=== PATIENT | male | born 2000 | race Caucasian/White ===

== ENCOUNTER 2018-06-16 15:09 | Outpatient (RCR) | payer SELFPAY ==
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
== END 2018-06-16 19:00 | disposition home or self-care (01) ==
LOC: PT 15:09
PROVIDERS: Referring Provider Orthopaedic Surgery; Visit Provider Orthopaedic Surgery
DX: S82.231K Displaced oblique fracture of shaft of right tibia, subsequent encounter for closed fracture with nonunion (principal); M86.2 Subacute osteomyelitis
CPT/HCPCS: 97161

== ENCOUNTER → 2020-12-14 14:18 | Outpatient (CLI) | payer OTHER, SELFPAY ==
--- NOTE | 2020-12-14 14:22 | RAD_ITS ---
INDICATION: HBO THERAPY TREATMENT EXAMINATION/TECHNIQUE: X-RAY - XR Chest 2 Views COMPARISON: None. FINDINGS: The lungs are clear. The cardiomediastinal silhouette is unremarkable. No pleural effusion or pneumothorax. No acute osseous abnormalities. RAD/Chest PA and Lateral IMPRESSION: No acute radiographic abnormalities. Electronically Signed: Yimi Muhammad MD at 23:44 EDT Tel , Service support ,
== END ==
PROVIDERS: PCP Family Medicine; Referring Provider Nurse Practitioner; Visit Provider Nurse Practitioner
DX: L97.919 Non-pressure chronic ulcer of unspecified part of right lower leg with unspecified severity (principal)
CPT/HCPCS: 71046

== ENCOUNTER 2020-12-28 08:15 | Outpatient (RCR) | payer OTHER, SELFPAY ==
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
[2020-12-13 11:57] VITALS: BP 139/74; PULSE 83; TEMP 36.1
[2020-12-14 14:52] LABS: Absolute Lymphocyte Count 2.71 X10^3/uL (0.83-4.51); Absolute Neutrophil Count 3.2 X10^3/uL (2.0-7.7); Basophil# 0.05 X10^3/uL; Basophil% 0.7 % (0-1); Eosinophil# 0.16 X10^3/uL; Eosinophils% 2.4 % (0-5); Hematocrit 47.5 % (40-54); Hemoglobin 15.8 g/dL (13.0-16.5); Lymphocyte # 2.71 X10^3/ul (0.83-4.51); Lymphocyte % 40.4 % (19-41); Mean Corp Hgb Conc 33.3 g/dL (32-36); Mean Corpuscular Hgb 28.2 pg (27.0-32.0); Mean Corpuscular Volume 84.8 fL (80-94); Mean Platelet Vol. 8.6 fl (6.2-12.0); Monocyte# 0.54 X10^3/uL; Monocyte% 8.1 % (0-10); NRBC Flagged by Analyzer 0 % (0-5); Neutrophil # 3.21 X10^3/uL (2.7-7.7); Platelet Count 239 K/mm3 (150-450); RBC Distribution Width CV 12.9 % (11.6-14.6); RBC Distribution Width SD 39.8 fl (35.1-43.9); White Blood Count 6.7 K/mm3 (4.4-11.0)
[2020-12-21 09:07] VITALS: BP 123/73; PULSE 89; RESP 18; TEMP 36.8
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
[2020-12-28 08:20] VITALS: BP 133/73; PULSE 78; RESP 18; TEMP 36.8
--- NOTE | 2020-12-28 12:48 | PCM.WC.PN ---
History of Present Illness Date of Service: 12/28/20 Chief Complaint: Chronic Osteomyelitis. Non healing Post surgical wound. History of Wound: Mr. Stoner is a 20-year-old who presents to the wound center for HBO consult due to non healing post surgical wound and chronic osteomyelitis. Initial injury was in 2017 and has had several surgeries since then. Most recent surgery was in September 2020. Following which, surgical wound has not completely closed. History of osteomyelitis initially diagnosed in 2019 and during most recent surgery, nonviable bone excised. Had been following up closely with his surgeon. No known history of heart or lung disease. No ear pain or discharge. Recently had Imaging and Blood work done which showed no concerns. Progress of Wound: The wound is an approximately in the right lower ankle area it has slough and scabbing patient has not been using any kind of treatment X prefer cover of gauze. Patient wears a boot for protection. We will obtain a CBC chest x-ray all records from previous orthopedic surgeons. Subjective Subjective Started on Santyl last week however discontinued after 1 day due to surrounding area of irritation and redness. Went back to [facility]. Objective Data Objective Data Vital Signs: Vital Signs Temp Pulse Resp BP 98.3 F 78 18 133/73 H 12/28/20 08:20 12/28/20 08:20 12/28/20 08:20 12/28/20 08:20 Lab / Micro Data Result Diagrams: 12/14/20 14:39 Micro: Microbiology 12/13/20 10:20 Wound Abcess - Ankle Gram Stain - Final 12/13/20 10:20 Wound Abcess - Ankle Wound Culture - Final Meth. resistant Staph. aureus Enterococcus faecalis Corynebacterium jeikeium 12/13/20 10:20 Wound Abcess - Ankle Anaerobic Culture - Final Anaerobic cocci Charges/Coding Procedures Integumentary 150xxx-152xx: 90083 Skin sub graft trnk/arm/leg Physical Exam Const alert, oriented x3 and no apparent distress General Appearance: cooperative, comfortable and well kempt HEENT normocephalic and head/scalp atraumatic Eyes General Eye: normal appearance of both eyes Neck full ROM General: normal visual inspection Resp normal respiratory effort Effort and Inspection: able to speak in complete sentences Cardio Rate: regular rate Rhythm: regular rhythm Heart Sounds: S1 normal and S2 normal GI Palpation: soft Skin Wounds: wounds noted Neuro oriented x3, CN's II-XII intact bilaterally and moves all extremities Sensorium / Orientation: awake and alert Psych mental status grossly normal Appearance: grossly normal Activity / Motor Behavior: appropriate eye contact Speech: normal speech Thought Process: normal thought process Debridement Note Debridement Note Post-Debridement Measurements and Additional Note: Post-Debridement Measurements/Treatment EVARISTO - Nurse 1 - General Ulcer Assessment Start: 12/13/20 09:20 Freq: Status: Active Protocol: FAIZAN Activity Type Activity Date Activity User E-Sign Co-Sign Detail Recorded Client Recorded Date Recorded By Document 12/13/20 11:57 KR [id number] 12/13/20 11:58 KR Document 12/21/20 09:07 DL [id number] 12/21/20 09:13 DL Document 12/28/20 08:20 DL [id number] 12/28/20 08:25 DL 12/13/20 12/21/20 12/28/20 11:57 09:07 08:20 EVARISTO - Today's Visit Information Type of service Initial Visit Follow-up Visit Follow-up Visit (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 [employer] (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 [employer] ) ) Arrival Mode Crutches Ambulatory, Ambulatory Crutches Transfer Assistance None Stretcher Patient Identification Verified (Name & Yes Yes Yes ) Patient Requires Transmission-Based No No Precautions Vital Signs Temperature (97.8 F-99.1 F) 97.0 F L 98.3 F 98.3 F Temperature Source Temporal Temporal Temporal Pulse Rate (60-100) 83 89 78 Pulse Location Monitor Monitor Monitor Respiratory Rate (12-18) 18 18 Respiratory rate source Observation Observation Blood Pressure (90/60-120/80) 139/74 H 123/73 H 133/73 H Blood Pressure Mean (mm Hg) 95 89 93 Source Monitor Monitor Monitor Position Semi-Fowlers Blood Pressure Location Right Arm History Since Last Visit- (Skip if this is Patient's initial visit) Have you changed medications since your No No No last visit? Any new allergies or adverse reactions No No No Had a fall/change in ADL's that may No No No increase risk of falls Signs or symptoms of abuse and/or No No No neglect since last visit Have you been in the hospital since your No No No last visit? Has dressing in place as prescribed No Yes No Has compression in place as prescribed N/A Yes No Has offloadiing in place as prescribed N/A Yes N/A Experienced any changes in pain level or No No management Left Footwear Regular Shoe Regular Shoe Right Footwear Regular Shoe Regular Shoe Pain Scale: 0-10 Numeric Is Patient Pain Free? Yes Yes Yes WC - Nurse 1 - General Ulcer Measurement Start: 12/13/20 09:20 Freq: Status: Active Protocol: Activity Type Activity Date Activity User E-Sign Co-Sign Detail Recorded Client Recorded Date Recorded By Document 12/13/20 11:57 KR [id number] 12/13/20 11:58 KR Document 12/21/20 09:07 DL [id number] 12/21/20 09:13 DL Document 12/28/20 08:20 DL [id number] 12/28/20 08:25 DL 12/13/20 12/21/20 12/28/20 11:57 09:07 08:20 Wound Center Nurse 1 #1 right medial ankle -Current Size (cm) - Length 3.4 3.1 3.5 -Current Size (cm) - Width 2.2 1.9 1.8 -Current Size (cm) - Depth 0.2 0.5 0.6 -Total Square Cm 7.48 5.89 6.30 -Photo Taken No -Undermining/Tunneling Yes -Undermining/Tunneling Starts (O'clock 11 ) -Undermining/Tunneling Ends (O'clock) 12 -Maximum Distance (cm) 0.4 -Exudate Amt Medium Medium -Exudate Type Serosanguineous Serosanguineous Purulent -Wound Margin Distinct, Distinct, Outline Outline Attached Attached -Granulation Amt Medium (34-66%) Small (1-33%) -Granulation Quality [place] -Necrosis Amt Medium (34-66%) Large (67-100%) -Necrotic Tissue Type Adherent Slough Adherent Slough -Structure Exposed N/A -Texture (Radha-wound Skin Appearance) Assessed, Localized Edema Scarring ,Scarring -Moisture (Radha-wound Skin Appearance) No Abnormality, No Abnormality Assessed -Color (Radha-wound Skin Appearance) No Abnormality, Rubor Assessed -Temperature (Radha-wound Skin No Abnormality No Abnormality Appearance) (Pt Warm) (Pt Warm) -Tenderness on Palpation (Radha-wound No No Skin Appearance) -Ulcer Cleansing Rinsed/ Rinsed/ Irrigated with Irrigated with Saline Saline -Foul Odor after Cleansing No No -Anesthetic Used 4% Lidocaine 4% Lidocaine Solution,5% Solution Lidocaine Gel Right Calf (cm) 38.6 37 Right Ankle (cm) 30 28.5 Left Calf (cm) 37.6 Left Ankle (cm) 25 WC - Nurse 2 - General Ulcer CM Notes Start: 12/13/20 09:20 Freq: Status: Active Protocol: Activity Type Activity Date Activity User E-Sign Co-Sign Detail Recorded Client Recorded Date Recorded By Document 12/13/20 10:12 MW [id number] 12/13/20 10:18 MW Document 12/21/20 09:28 MW [id number] 12/21/20 09:34 MW Document 12/28/20 08:34 MW [id number] 12/28/20 08:43 MW 12/13/20 12/21/20 12/28/20 10:12 09:28 08:34 Wound Center Nurse 2 #1 right medial ankle -Time 10:16 09:30 08:34 -Correct Patient Yes Yes Yes -Correct Side, Site, Position Yes Yes Yes -Correct Procedure Yes Yes Yes -Procedure Performed Yes Yes Yes -Type of Procedure Debridement Debridement Debridement -Clinical Debridement Subcutaneous Subcutaneous Subcutaneous -Tissue Removed Subcutaneous Subcutaneous Subcutaneous -Post Debridement (cm) - Length 3.5 3.6 3.5 -Post Debridement (cm) - Width 1.5 2.0 2.0 -Post Debridement (cm) - Depth 0.3 0.2 1.0 -Total Square (Post) (cm) 5.25 7.20 7.00 -Area of Debridement (cm) - Length 3.5 3.6 3.5 -Area of Debridement (cm) - Width 1.5 2.0 2.0 -Total Square (Area) (cm) 5.25 7.20 7.00 -Tunneling No No No -Undermining/Tunneling No No No -Circular Undermining No No No -Wound/Ulcer Outcome Not Healed Not Healed Not Healed -Ulcer Cleansing Rinsed/ Rinsed/ Rinsed/ Irrigated with Irrigated with Irrigated with Saline Saline Saline -Foul Odor after Cleansing No No No -Bioengineered Tissue No No Yes -Type of Bioengineered Tissue Epifix Mesh -Expiration Date 07/31/25 -Product Lot Number [id number] -Percent Used 100 -Lot number of Saline Used [id number] -Bleeding Controlled with Pressure Pressure Pressure -Offloading No No No -Treatment Response Procedure Procedure Procedure Tolerated Well Tolerated Well Tolerated Well -Debridement - Subq, 1st 20sq cm Yes Yes No -Apply Skin Sub - 1st 25 sq cm - Legs 1 -Epifix Mesh (per sq cm) 11 Pain Scale: 0-10 Numeric Is Patient Pain Free? Yes Yes Yes - Nurse 3 - General Ulcer D/C NN Start: 12/13/20 09:20 Freq: Status: Active Protocol: Activity Type Activity Date Activity User E-Sign Co-Sign Detail Recorded Client Recorded Date Recorded By Document 12/13/20 10:28 KR [id number] 12/13/20 10:28 KR Document 12/21/20 09:55 DL [id number] 12/21/20 09:57 DL Document 12/28/20 09:11 RB [id number] 12/28/20 09:11 RB 12/13/20 12/21/20 12/28/20 10:28 09:55 09:11 Wound Care Nurse 3 #1 right medial ankle -Ulcer Cleansing Rinsed/ Rinsed/ Irrigated with Irrigated with Saline Saline -Foul Odor after Cleansing No -Primary Dressing Applied Aquacel Extra NonAdherent Contact Layer -Other Dressing hydrogel -Primary Dressing Covered/Secured with Dry Gauze,Dry Dry Gauze & Dry Gauze,Dry Gauze & Roll Roll Gauze, Gauze & Roll Gauze,Secured Secured with Gauze,Secured with Tape Tape with Tape -Aquacel Extra 1 Treatment Response Procedure Procedure Tolerated Well Tolerated Well Pain Scale: 0-10 Numeric Is Patient Pain Free? Yes Yes - Visit Discharge Discharge Condition Stable Stable Stable Ambulatory Status Crutches Ambulatory Ambulatory, Crutches Transportation formerly [facility] Private Auto Private Auto Medication Reconcilliation completed & No provided to patient/care provider Clinical Summary of Care Provided Yes Notes: Pt to start Santyl. Px and instructions on application given to pt and family. Wound debrided: Right medial ankle Type of Debridement: Excisional debridement Anesthesia Used: 4% Lidocaine Solution Depth: Down to and including healthy tissue and in the subcutaneous layer Percentage of wound debrided: 100 Instrument Used: 5mm curette Tissue Removed: Slough and devitalized tissue Severity: Fat Layer Exposed Amount of bleeding with debridement: Mild Bleeding Controlled with: Pressure Patient tolerated procedure: Patient tolerated procedure well Assessment/Plan Assessment/Plan (1) Nonhealing surgical wound: CODE(S): T81.89XA - Other complications of procedures, not elsewhere classified, initial encounter QUALIFIERS: Encounter type: initial encounter Qualified Code(s): T81.89XA - Other complications of procedures, not elsewhere classified, initial encounter (2) Osteomyelitis of ankle: CODE(S): M86.9 - Osteomyelitis, unspecified QUALIFIERS: Osteomyelitis type: subacute Laterality: right Qualified Code(s): M86.271 - Subacute osteomyelitis, right ankle and foot (3) Edema of right lower leg: CODE(S): R60.0 - Localized edema PLAN: Debridement done as documented above, procedure was well-tolerated. Initial application of epifix done today is 100% of product. Moistened with saline, Adaptic touch over top. Secured with Steri-Strips. Leave in place for a week. Still awaiting approval for HBO. Patient has chronic osteomyelitis. Elevate lower extremities when seated and in bed. Continue compression. Increase protein intake, vitamin C and D. His questions were answered and he was advised to call with any further questions or concerns. Follow-up in 1 week. This note was generated with [employer] dictation software. It may contain incorrect words, spelling, and punctuation that were not noted in checking the note before signing.
--- NOTE | 2020-12-28 15:03 | WC ---
[facility] insurance was contacted and the do not require prior authorization for HBO treatment The call reference number is [id number]
== END 2020-12-30 23:59 ==
LOC: WC 08:15
PROVIDERS: Nurse Practitioner; PCP Family Medicine; Visit Provider Internal Medicine
DX: T81.89XA Other complications of procedures, not elsewhere classified, initial encounter (principal); M86.271 Subacute osteomyelitis, right ankle and foot; R60.0 Localized edema; H61.23 Impacted cerumen, bilateral
CPT/HCPCS: 11042; 15271; 36415; 85025; 87070; 87075; 87077; 87186; 87205; 99203; Q4186; G0463

== ENCOUNTER 2021-01-30 08:00 | Outpatient (RCR) | payer OTHER, SELFPAY ==
[2020-12-31 00:36] VITALS: BP 133/73; PULSE 78; RESP 18; TEMP 36.8
[2021-01-02 10:07] VITALS: BP 128/59; BP 140/73; PULSE 64; PULSE 82; RESP 16; RESP 17; TEMP 36.6; TEMP 36.7
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
[2021-01-04 09:19] VITALS: BP 133/72; PULSE 84; RESP 18; TEMP 36.9
--- NOTE | 2021-01-04 12:15 | PCM.WC.PN ---
History of Present Illness Date of Service: 01/04/21 Chief Complaint: Chronic osteomyelitis of the right ankle; Non healing Post surgical wound of the right ankle. History of Wound: Mr. Stoner is a 20-year-old who presents to the wound center for HBO consult due to non healing post surgical wound and chronic osteomyelitis. Initial injury was in 2017 and has had several surgeries since then. Most recent surgery was in September 2020. Following which, surgical wound has not completely closed. History of osteomyelitis initially diagnosed in 2019 and during most recent surgery, nonviable bone excised. Had been following up closely with his surgeon. No known history of heart or lung disease. No ear pain or discharge. Recently had Imaging and Blood work done which showed no concerns. Subjective Subjective Has had 1 application of epi fix so far. Has also had 1 HBO session. No new concerns at this time. Objective Data Objective Data Vital Signs: Vital Signs Temp Pulse Resp BP 98.5 F 84 18 133/72 H 01/04/21 09:19 01/04/21 09:19 01/04/21 09:19 01/04/21 09:19 Charges/Coding Procedures Integumentary 150xxx-152xx: [id number] Skin sub graft trnk/arm/leg Physical Exam Const alert, oriented x3, no apparent distress and well nourished General Appearance: cooperative and well developed HEENT normocephalic Head and Scalp: atraumatic Eyes PERRL and EOMs intact bilaterally Resp normal respiratory effort and no use of accessory muscles Effort and Inspection: able to speak in complete sentences Skin Wounds: wounds noted Psych Appearance: grossly normal Debridement Note Debridement Note Post-Debridement Measurements and Additional Note: Post-Debridement Measurements/Treatment - Nurse 1 - General Ulcer Assessment Start: 01/02/21 10:06 Freq: Status: Active Protocol: EVARISTO.LOWEXT Activity Type Activity Date Activity User E-Sign Co-Sign Detail Recorded Client Recorded Date Recorded By Document 01/04/21 09:19 BULMARO [id number] 01/04/21 09:28 DL 01/04/21 09:19 - Today's Visit Information Type of service Follow-up Visit (Physician/EDUCATION REVIEWER ) Arrival Mode Ambulatory, Crutches Transfer Assistance None Patient Identification Verified (Name & Yes ) Patient Requires Transmission-Based No Precautions Vital Signs Temperature (97.8 F-99.1 F) 98.5 F Temperature Source Temporal Pulse Rate (60-100) 84 Pulse Location Monitor Respiratory Rate (12-18) 18 Respiratory rate source Observation Blood Pressure (90/60-120/80) 133/72 H Blood Pressure Mean (mm Hg) 92 Source Monitor History Since Last Visit- (Skip if this is Patient's initial visit) Have you changed medications since your No last visit? Any new allergies or adverse reactions No Had a fall/change in ADL's that may No increase risk of falls Signs or symptoms of abuse and/or No neglect since last visit Have you been in the hospital since your No last visit? Has dressing in place as prescribed Yes Has compression in place as prescribed Yes Has offloadiing in place as prescribed N/A Experienced any changes in pain level or No management Pain Scale: 0-10 Numeric Is Patient Pain Free? Yes WC - Nurse 1 - General Ulcer Measurement Start: 01/02/21 10:06 Freq: Status: Active Protocol: Activity Type Activity Date Activity User E-Sign Co-Sign Detail Recorded Client Recorded Date Recorded By Document 01/04/21 09:19 DL [id number] 01/04/21 09:28 DL 01/04/21 09:19 Wound Center Nurse 1 #1 right medial ankle -Current Size (cm) - Length 2.9 -Current Size (cm) - Width 1.5 -Current Size (cm) - Depth 0.6 -Total Square Cm 4.35 -Photo Taken No -Exudate Amt Medium -Exudate Type Serosanguineous -Wound Margin Distinct, Outline Attached -Granulation Amt Medium (34-66%) -Granulation Quality Red -Necrosis Amt Medium (34-66%) -Necrotic Tissue Type Adherent Slough -Structure Exposed N/A -Texture (Radha-wound Skin Appearance) Scarring -Moisture (Radha-wound Skin Appearance) No Abnormality -Color (Radha-wound Skin Appearance) No Abnormality -Temperature (Radha-wound Skin No Abnormality Appearance) (Pt Warm) -Tenderness on Palpation (Radha-wound No Skin Appearance) -Ulcer Cleansing Wound Cleanser -Anesthetic Used 5% Lidocaine Gel,Cetacaine Right Calf (cm) 36.5 Right Ankle (cm) 26.3 WC - Nurse 2 - General Ulcer CM Notes Start: 01/02/21 10:06 Freq: Status: Active Protocol: Activity Type Activity Date Activity User E-Sign Co-Sign Detail Recorded Client Recorded Date Recorded By Document 01/04/21 09:35 MW [id number] 01/04/21 09:44 MW 01/04/21 09:35 Wound Center Nurse 2 #1 right medial ankle -Time 09:37 -Correct Patient Yes -Correct Side, Site, Position Yes -Correct Procedure Yes -Procedure Performed Yes -Type of Procedure Debridement -Clinical Debridement Subcutaneous -Tissue Removed Subcutaneous -Post Debridement (cm) - Length 3.0 -Post Debridement (cm) - Width 1.4 -Post Debridement (cm) - Depth 0.7 -Total Square (Post) (cm) 4.20 -Area of Debridement (cm) - Length 3.0 -Area of Debridement (cm) - Width 1.4 -Total Square (Area) (cm) 4.20 -Tunneling No -Undermining/Tunneling No -Circular Undermining No -Wound/Ulcer Outcome Not Healed -Ulcer Cleansing Rinsed/ Irrigated with Saline -Foul Odor after Cleansing No -Bioengineered Tissue Yes -Type of Bioengineered Tissue Epifix -Expiration Date 08/31/25 -Product Lot Number [id number] -Percent Used 100 -Lot number of Saline Used [id number] -Bleeding Controlled with Pressure -Offloading No -Treatment Response Procedure Tolerated Well -Debridement - Subq, 1st 20sq cm No -Apply Skin Sub - 1st 25 sq cm - Legs 1 -Epifix (per sq cm) 4 Pain Scale: 0-10 Numeric Is Patient Pain Free? Yes - Nurse 3 - General Ulcer D/C NN Start: 01/02/21 10:06 Freq: Status: Active Protocol: Activity Type Activity Date Activity User E-Sign Co-Sign Detail Recorded Client Recorded Date Recorded By Document 01/04/21 09:50 AK [id number] 01/04/21 09:51 AK 01/04/21 09:50 Wound Care Nurse 3 #1 right medial ankle -Ulcer Cleansing Rinsed/ Irrigated with Saline -Foul Odor after Cleansing No -Primary Dressing Covered/Secured with Dry Gauze & Roll Gauze, Secured with Tape WC - Visit Discharge Discharge Condition Stable Ambulatory Status Ambulatory Accompanied by MOM Clinical Summary of Care Provided Yes Wound debrided: Right lower extremity Type of Debridement: Excisional debridement Anesthesia Used: 4% Lidocaine Solution Depth: Down to and including healthy tissue and in the subcutaneous layer Percentage of wound debrided: 100 Instrument Used: 5mm curette Tissue Removed: Slough and devitalized tissue Severity: Fat Layer Exposed Amount of bleeding with debridement: Mild Bleeding Controlled with: Pressure Patient tolerated procedure: Patient tolerated procedure well Assessment/Plan Assessment/Plan (1) Nonhealing surgical wound: CODE(S): T81.89XA - Other complications of procedures, not elsewhere classified, initial encounter QUALIFIERS: Encounter type: initial encounter Qualified Code(s): T81.89XA - Other complications of procedures, not elsewhere classified, initial encounter (2) Osteomyelitis of ankle: CODE(S): M86.9 - Osteomyelitis, unspecified QUALIFIERS: Osteomyelitis type: subacute Laterality: right Qualified Code(s): M86.271 - Subacute osteomyelitis, right ankle and foot (3) Edema of right lower leg: CODE(S): R60.0 - Localized edema PLAN: Some improvement noted. Debridement done as documented above, procedure was well-tolerated. Second application of Epifix done today using 100% of product. Moistened with saline, Adaptic touch over top. Secured with Steri-Strips. Leave in place for a week. Elevate lower extremities when seated and in bed. Continue compression. Increase protein intake, vitamin C and D. His questions were answered and he was advised to call with any further questions or concerns. Follow-up in 1 week. This note was generated with [employer] dictation software. It may contain incorrect words, spelling, and punctuation that were not noted in checking the note before signing.
[2021-01-05 08:29] VITALS: BP 124/64; BP 137/79; PULSE 62; PULSE 77; RESP 16; TEMP 36; TEMP 36.1
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
[2021-01-08 10:35] VITALS: BP 112/54; BP 129/68; PULSE 65; PULSE 97; RESP 18; TEMP 36.4; TEMP 36.6
[2021-01-11 09:07] VITALS: BP 118/73; PULSE 81; RESP 18; TEMP 36.8
--- NOTE | 2021-01-11 12:44 | PN.PCM_ITS ---
History of Present Illness Date of Service: 01/11/21 Chief Complaint: Chronic osteomyelitis of the right ankle; Non healing Post surgical wound of the right ankle. History of Wound: Mr. Stoner is a 20-year-old who presents to the wound center for HBO consult due to non healing post surgical wound and chronic osteomyelitis. Initial injury was in 2017 and has had several surgeries since then. Most recent surgery was in September 2020. Following which, surgical wound has not completely closed. History of osteomyelitis initially diagnosed in 2019 and during most recent surgery, nonviable bone excised. Had been following up closely with his surgeon. No known history of heart or lung disease. No ear pain or discharge. Recently had Imaging and Blood work done which showed no concerns. Subjective Subjective Has had 2 applications of epi fix so far. Has also had some HBO sessions. No new concerns at this time. Objective Data Objective Data Vital Signs: Vital Signs Temp Pulse Resp BP 98.3 F 81 18 118/73 01/11/21 09:07 01/11/21 09:07 01/11/21 09:07 01/11/21 09:07 Charges/Coding Procedures Integumentary 150xxx-152xx: 14018 Skin sub graft trnk/arm/leg Physical Exam Const alert, oriented x3, no apparent distress and well nourished General Appearance: cooperative and well developed HEENT normocephalic Head and Scalp: atraumatic Eyes PERRL and EOMs intact bilaterally Resp normal respiratory effort and no use of accessory muscles Effort and Inspection: able to speak in complete sentences Skin Wounds: wounds noted Psych Appearance: grossly normal Debridement Note Debridement Note Post-Debridement Measurements and Additional Note: Post-Debridement Measurements/Treatment - Nurse 1 - General Ulcer Assessment Start: 01/02/21 10:06 Freq: Status: Active Protocol: [email or web address] Activity Type Activity Date Activity User E-Sign Co-Sign Detail Recorded Client Recorded Date Recorded By Document 01/04/21 09:19 DL [id number] 01/04/21 09:28 DL Document 01/11/21 09:07 DL [id number] 01/11/21 09:15 DL 01/04/21 01/11/21 09:19 09:07 - Today's Visit Information Type of service Follow-up Visit Follow-up Visit (Physician/RESTORATIVE COORDINATOR (Physician/RESTORATIVE COORDINATOR ) ) Arrival Mode Ambulatory, Ambulatory Crutches Transfer Assistance None None Patient Identification Verified (Name & Yes Yes ) Patient Requires Transmission-Based No No Precautions Vital Signs Temperature (97.8 F-99.1 F) 98.5 F 98.3 F Temperature Source Temporal Temporal Pulse Rate (60-100) 84 81 Pulse Location Monitor Monitor Respiratory Rate (12-18) 18 18 Respiratory rate source Observation Observation Blood Pressure (90/60-120/80) 133/72 H 118/73 Blood Pressure Mean (mm Hg) 92 88 Source Monitor Monitor History Since Last Visit- (Skip if this is Patient's initial visit) Have you changed medications since your No No last visit? Any new allergies or adverse reactions No No Had a fall/change in ADL's that may No No increase risk of falls Signs or symptoms of abuse and/or No No neglect since last visit Have you been in the hospital since your No No last visit? Has dressing in place as prescribed Yes Yes Has compression in place as prescribed Yes No Has offloadiing in place as prescribed N/A N/A Experienced any changes in pain level or No management Pain Scale: 0-10 Numeric Is Patient Pain Free? Yes Yes WC - Nurse 1 - General Ulcer Measurement Start: 01/02/21 10:06 Freq: Status: Active Protocol: Activity Type Activity Date Activity User E-Sign Co-Sign Detail Recorded Client Recorded Date Recorded By Document 01/04/21 09:19 DL [id number] 01/04/21 09:28 DL Document 01/11/21 09:07 DL [id number] 01/11/21 09:15 DL 01/04/21 01/11/21 09:19 09:07 Wound Center Nurse 1 #1 right medial ankle -Current Size (cm) - Length 2.9 1.9 -Current Size (cm) - Width 1.5 1 -Current Size (cm) - Depth 0.6 0.5 -Total Square Cm 4.35 1.9 -Photo Taken No No -Exudate Amt Medium -Exudate Type Serosanguineous Serosanguineous -Wound Margin Distinct, Distinct, Outline Outline Attached Attached -Granulation Amt Medium (34-66%) None Present (0 %) -Granulation Quality Red -Necrosis Amt Medium (34-66%) None Present (0 %) -Necrotic Tissue Type Adherent Slough -Structure Exposed N/A Fascia -Texture (Radha-wound Skin Appearance) Scarring Scarring -Moisture (Radha-wound Skin Appearance) No Abnormality No Abnormality -Color (Radha-wound Skin Appearance) No Abnormality No Abnormality -Temperature (Radha-wound Skin No Abnormality No Abnormality Appearance) (Pt Warm) (Pt Warm) -Tenderness on Palpation (Radha-wound No No Skin Appearance) -Ulcer Cleansing Wound Cleanser Wound Cleanser -Foul Odor after Cleansing No -Anesthetic Used 5% Lidocaine 4% Lidocaine Gel,Cetacaine Solution Right Calf (cm) 36.5 37.5 Right Ankle (cm) 26.3 29.5 WC - Nurse 2 - General Ulcer CM Notes Start: 01/02/21 10:06 Freq: Status: Active Protocol: Activity Type Activity Date Activity User E-Sign Co-Sign Detail Recorded Client Recorded Date Recorded By Document 01/04/21 09:35 MW [id number] 01/04/21 09:44 MW Document 01/11/21 09:46 MW [id number] 01/11/21 10:00 MW 01/04/21 01/11/21 09:35 09:46 Wound Center Nurse 2 #1 right medial ankle -Time 09:37 09:46 -Correct Patient Yes Yes -Correct Side, Site, Position Yes Yes -Correct Procedure Yes Yes -Procedure Performed Yes Yes -Type of Procedure Debridement Debridement -Clinical Debridement Subcutaneous Subcutaneous -Tissue Removed Subcutaneous Subcutaneous -Post Debridement (cm) - Length 3.0 2.7 -Post Debridement (cm) - Width 1.4 1.6 -Post Debridement (cm) - Depth 0.7 0.8 -Total Square (Post) (cm) 4.20 4.32 -Area of Debridement (cm) - Length 3.0 2.7 -Area of Debridement (cm) - Width 1.4 1.6 -Total Square (Area) (cm) 4.20 4.32 -Tunneling No No -Undermining/Tunneling No No -Circular Undermining No No -Wound/Ulcer Outcome Not Healed Not Healed -Ulcer Cleansing Rinsed/ Rinsed/ Irrigated with Irrigated with Saline Saline -Foul Odor after Cleansing No No -Bioengineered Tissue Yes Yes -Type of Bioengineered Tissue Epifix Epifix -Expiration Date 08/31/25 09/30/25 -Product Lot Number [id number] -Percent Used 100 100 -Lot number of Saline Used [id number] -Bleeding Controlled with Pressure Pressure -Offloading No No -Treatment Response Procedure Procedure Tolerated Well Tolerated Well -Debridement - Subq, 1st 20sq cm No No -Apply Skin Sub - 1st 25 sq cm - Legs 1 1 -Epifix (per sq cm) 4 11 Pain Scale: 0-10 Numeric Is Patient Pain Free? Yes Yes - Nurse 3 - General Ulcer D/C NN Start: 01/02/21 10:06 Freq: Status: Active Protocol: Activity Type Activity Date Activity User E-Sign Co-Sign Detail Recorded Client Recorded Date Recorded By Document 01/04/21 09:50 AK [id number] 01/04/21 09:51 AK Document 01/11/21 10:05 DL [id number] 01/11/21 10:06 DL 01/04/21 01/11/21 09:50 10:05 Wound Care Nurse 3 #1 right medial ankle -Ulcer Cleansing Rinsed/ Irrigated with Saline -Foul Odor after Cleansing No No -Primary Dressing Applied NonAdherent Contact Layer -Other Dressing EppiFix Mesh -Primary Dressing Covered/Secured with Dry Gauze & Dry Gauze & Roll Gauze, Roll Gauze, Secured with Secured with Tape Tape Treatment Response Procedure Tolerated Well Pain Scale: 0-10 Numeric Is Patient Pain Free? Yes WC - Visit Discharge Discharge Condition Stable Stable Ambulatory Status Ambulatory Ambulatory Transportation Private Auto Accompanied by MOM Clinical Summary of Care Provided Yes Wound debrided: Right ankle Type of Debridement: Excisional debridement Anesthesia Used: 4% Lidocaine Solution Depth: Down to and including healthy tissue and in the subcutaneous layer Percentage of wound debrided: 100 Instrument Used: 5mm curette Tissue Removed: Slough and devitalized tissue Severity: Fat Layer Exposed Amount of bleeding with debridement: Mild Bleeding Controlled with: Pressure Patient tolerated procedure: Patient tolerated procedure well Assessment/Plan Assessment/Plan (1) Nonhealing surgical wound: CODE(S): T81.89XA - Other complications of procedures, not elsewhere classified, initial encounter QUALIFIERS: Encounter type: initial encounter Qualified Code(s): T81.89XA - Other complications of procedures, not elsewhere classified, initial encounter (2) Osteomyelitis of ankle: CODE(S): M86.9 - Osteomyelitis, unspecified QUALIFIERS: Osteomyelitis type: subacute Laterality: right Qualified Code(s): M86.271 - Subacute osteomyelitis, right ankle and foot (3) Edema of right lower leg: CODE(S): R60.0 - Localized edema PLAN: Stable. Debridement done as documented above, procedure was well- tolerated. 3rd application of Epifix done today using 100% of product. Moistened with saline, Adaptic touch over top. Secured with Steri-Strips. Leave in place for 2 weeks. Elevate lower extremities when seated and in bed. Continue compression. Increase protein intake, vitamin C and D. His questions were answered and he was advised to call with any further questions or concerns. Follow up with me in 2 weeks. This note was generated with [employer] dictation software. It may contain incorrect words, spelling, and punctuation that were not noted in checking the note before signing.
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
[2021-01-15 08:59] VITALS: BP 149/78; PULSE 90; RESP 16; RESP 6; TEMP 36.2
[2021-01-16 08:27] VITALS: BP 119/54; BP 122/70; PULSE 67; PULSE 74; RESP 16; TEMP 36.2; TEMP 36.3
--- NOTE | 2021-01-16 13:20 | PCM.HBO.PN ---
History of Present Illness Date of Service: 01/16/21 Chief Complaint: Chronic osteomyelitis of the right ankle; Non healing Post surgical wound of the right ankle. History of Wound: Mr. Stoner is a 20-year-old who presents to the wound center for HBO consult due to non healing post surgical wound and chronic osteomyelitis. Initial injury was in 2017 and has had several surgeries since then. Most recent surgery was in September 2020. Following which, surgical wound has not completely closed. History of osteomyelitis initially diagnosed in 2019 and during most recent surgery, nonviable bone excised. Had been following up closely with his surgeon. No known history of heart or lung disease. No ear pain or discharge. Recently had Imaging and Blood work done which showed no concerns. Subjective Subjective Today's hyperbaric oxygen therapy session represents the fifth such session of a planned 30 sessions. Hyperbaric oxygen therapy was administered as per the facility's protocol. Hyperbaric oxygen therapy was administered at 2 katelyn for 90 minutes with no air breaks. The patient tolerated hyperbaric oxygen therapy well, without complaints or complications. Upon emergence from the hyperbaric chamber, the patient's vital signs remained stable. He was discharged in good condition. Objective Data Objective Data Vital Signs: Vital Signs Temp Pulse Resp BP 97.3 F L 74 16 122/70 H 01/16/21 08:27 01/16/21 08:27 01/16/21 08:27 01/16/21 08:27 Exam Physical Exam Const alert, oriented x3, no apparent distress and well nourished General Appearance: cooperative and well developed HEENT normocephalic Head and Scalp: atraumatic Eyes PERRL and EOMs intact bilaterally Resp normal respiratory effort, no use of accessory muscles and clear to auscultation bilaterally Effort and Inspection: able to speak in complete sentences Psych affect normal Appearance: grossly normal Assessment/Plan Assessment/Plan (1) Chronic osteomyelitis of right ankle: CODE(S): M86.671 - Other chronic osteomyelitis, right ankle and foot (2) Chronic osteomyelitis: CODE(S): M86.60 - Other chronic osteomyelitis, unspecified site (3) Osteomyelitis of ankle: CODE(S): M86.9 - Osteomyelitis, unspecified QUALIFIERS: Osteomyelitis type: subacute Laterality: right Qualified Code(s): M86.271 - Subacute osteomyelitis, right ankle and foot (4) Edema of right lower leg: CODE(S): R60.0 - Localized edema (5) Nonhealing surgical wound: CODE(S): T81.89XA - Other complications of procedures, not elsewhere classified, initial encounter QUALIFIERS: Encounter type: initial encounter Qualified Code(s): T81.89XA - Other complications of procedures, not elsewhere classified, initial encounter PLAN: The patient appears to be tolerating hyperbaric oxygen therapy well, which will be continued as per the patient's medical plan.
--- NOTE | 2021-01-17 08:21 | PCM.HBO.PN ---
History of Present Illness Date of Service: 01/17/21 Chief Complaint: Chronic osteomyelitis of the right ankle; Non healing Post surgical wound of the right ankle. History of Wound: Mr. Stoner is a 20-year-old who presents to the wound center for HBO consult due to non healing post surgical wound and chronic osteomyelitis. Initial injury was in 2017 and has had several surgeries since then. Most recent surgery was in September 2020. Following which, surgical wound has not completely closed. History of osteomyelitis initially diagnosed in 2019 and during most recent surgery, nonviable bone excised. Had been following up closely with his surgeon. No known history of heart or lung disease. No ear pain or discharge. Recently had Imaging and Blood work done which showed no concerns. Subjective Subjective Today's hyperbaric oxygen therapy session represents the 6th such session of a planned 30 sessions. Hyperbaric oxygen therapy was administered as per the facility's protocol. Hyperbaric oxygen therapy was administered at 2 katelyn for 90 minutes with no air breaks. The patient tolerated hyperbaric oxygen therapy well, without complaints or complications. Upon emergence from the hyperbaric chamber, the patient's vital signs remained stable. He was discharged in good condition. Objective Data Objective Data Vital Signs: Vital Signs Temp Pulse Resp BP 97.3 F L 74 16 122/70 H 01/16/21 08:27 01/16/21 08:27 01/16/21 08:27 01/16/21 08:27 Exam Physical Exam Const alert, oriented x3, no apparent distress and well nourished General Appearance: cooperative and well developed HEENT normocephalic Head and Scalp: atraumatic Tympanic Membrane: TM's normal bilaterally Resp normal respiratory effort Effort and Inspection: able to speak in complete sentences Auscultation: clear to auscultation bilaterally Cardio regular rate and regular rhythm Psych Appearance: grossly normal Assessment/Plan Assessment/Plan (1) Chronic osteomyelitis of right ankle: CODE(S): M86.671 - Other chronic osteomyelitis, right ankle and foot (2) Chronic osteomyelitis: CODE(S): M86.60 - Other chronic osteomyelitis, unspecified site (3) Osteomyelitis of ankle: CODE(S): M86.9 - Osteomyelitis, unspecified QUALIFIERS: Laterality: right Osteomyelitis type: subacute Qualified Code(s): M86.271 - Subacute osteomyelitis, right ankle and foot (4) Edema of right lower leg: CODE(S): R60.0 - Localized edema (5) Nonhealing surgical wound: CODE(S): T81.89XA - Other complications of procedures, not elsewhere classified, initial encounter QUALIFIERS: Encounter type: initial encounter Qualified Code(s): T81.89XA - Other complications of procedures, not elsewhere classified, initial encounter
[2021-01-17 09:26] VITALS: BP 111/67; BP 122/76; PULSE 62; PULSE 80; RESP 16; TEMP 36.4; TEMP 36.6
[2021-01-22 08:26] VITALS: BP 110/61; BP 126/73; PULSE 59; PULSE 74; RESP 16; RESP 17; TEMP 36.1; TEMP 36.2
--- NOTE | 2021-01-22 08:32 | PCM.HBO.PN ---
History of Present Illness Date of Service: 01/22/21 Chief Complaint: Chronic osteomyelitis of the right ankle; Non healing Post surgical wound of the right ankle. History of Wound: Mr. Stoner is a 20-year-old who presents to the wound center for HBO consult due to non healing post surgical wound and chronic osteomyelitis. Initial injury was in 2017 and has had several surgeries since then. Most recent surgery was in September 2020. Following which, surgical wound has not completely closed. History of osteomyelitis initially diagnosed in 2019 and during most recent surgery, nonviable bone excised. Had been following up closely with his surgeon. No known history of heart or lung disease. No ear pain or discharge. Recently had Imaging and Blood work done which showed no concerns. Subjective Subjective Today's hyperbaric oxygen therapy session represents the 7th such session of a planned 30 sessions. Hyperbaric oxygen therapy was administered as per the facility's protocol. Hyperbaric oxygen therapy was administered at 2 katelyn for 90 minutes with no air breaks. The patient tolerated hyperbaric oxygen therapy well, without complaints or complications. Upon emergence from the hyperbaric chamber, the patient's vital signs remained stable. He was discharged in good condition. Objective Data Objective Data Vital Signs: Vital Signs Temp Pulse Resp BP 97.1 F L 74 16 126/73 H 01/22/21 08:26 01/22/21 08:26 01/22/21 08:26 01/22/21 08:26 Exam Physical Exam Const alert, oriented x3, no apparent distress and well nourished General Appearance: cooperative and well developed HEENT normocephalic Head and Scalp: atraumatic Tympanic Membrane: TM's normal bilaterally Resp normal respiratory effort Effort and Inspection: able to speak in complete sentences Auscultation: clear to auscultation bilaterally Cardio regular rate and regular rhythm Psych Appearance: grossly normal Assessment/Plan Assessment/Plan (1) Chronic osteomyelitis of right ankle: CODE(S): M86.671 - Other chronic osteomyelitis, right ankle and foot (2) Chronic osteomyelitis: CODE(S): M86.60 - Other chronic osteomyelitis, unspecified site (3) Osteomyelitis of ankle: CODE(S): M86.9 - Osteomyelitis, unspecified QUALIFIERS: Laterality: right Osteomyelitis type: subacute Qualified Code(s): M86.271 - Subacute osteomyelitis, right ankle and foot (4) Edema of right lower leg: CODE(S): R60.0 - Localized edema (5) Nonhealing surgical wound: CODE(S): T81.89XA - Other complications of procedures, not elsewhere classified, initial encounter QUALIFIERS: Encounter type: initial encounter Qualified Code(s): T81.89XA - Other complications of procedures, not elsewhere classified, initial encounter PLAN: He appears to be tolerating hyperbaric oxygen therapy well, which will be continued as per his medical plan.
[2021-01-23 10:14] VITALS: BP 113/60; BP 113/65; PULSE 63; PULSE 77; RESP 16; TEMP 36.3; TEMP 36.4
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
[2021-01-24 11:48] VITALS: BP 114/66; BP 129/72; PULSE 67; PULSE 86; RESP 16; TEMP 36.4
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
[2021-01-25 09:51] VITALS: BP 125/76; BP 132/73; PULSE 61; PULSE 88; RESP 16; TEMP 36.3
--- NOTE | 2021-01-25 10:06 | HBO.PN.PCM_ITS ---
History of Present Illness Date of Service: 01/25/21 Chief Complaint: Chronic osteomyelitis of the right ankle; Non healing Post surgical wound of the right ankle. History of Wound: Mr. Stoner is a 20-year-old who presented to the wound center for HBO due to non healing post surgical wound and chronic osteomyelitis. Initial injury was in 2017 and has had several surgeries since then. Most recent surgery was in September 2020. Following which, surgical wound has not completely closed. History of osteomyelitis initially diagnosed in 2019 and during most recent surgery, nonviable bone excised. Had been following up closely with his surgeon. No known history of heart or lung disease. No ear pain or discharge. Recently had Imaging and Blood work done which showed no concerns. Subjective Subjective Today represents the 10th such session of hyperbaric oxygen therapy, of a planned 30 sessions. Hyperbaric oxygen therapy was administered as per the facility's protocol. Hyperbaric oxygen therapy was administered at 2 katelyn for 90 minutes with no air breaks. Patient tolerated hyperbaric oxygen therapy well, without complaints or complications. Upon emergence from the hyperbaric chamber, the patient's vital signs remained stable. He was discharged in good condition. Objective Data Objective Data Vital Signs: Vital Signs Temp Pulse Resp BP 97.4 F L 88 16 132/73 H 01/25/21 09:51 01/25/21 09:51 01/25/21 09:51 01/25/21 09:51 Exam Physical Exam Const alert, oriented x3, no apparent distress and well nourished General Appearance: cooperative and well developed HEENT normocephalic Head and Scalp: atraumatic Tympanic Membrane: TM's normal bilaterally Eyes PERRL and EOMs intact bilaterally Resp normal respiratory effort and no use of accessory muscles Effort and Inspection: able to speak in complete sentences Skin Wounds: wounds noted Psych Appearance: grossly normal Charges/Coding Wound Center CF Procedures HBO Supervision: [id number] Hyperbaric Oxygen; supervision Assessment/Plan Assessment/Plan (1) Chronic osteomyelitis of right ankle: CODE(S): M86.671 - Other chronic osteomyelitis, right ankle and foot (2) Chronic osteomyelitis: CODE(S): M86.60 - Other chronic osteomyelitis, unspecified site (3) Edema of right lower leg: CODE(S): R60.0 - Localized edema (4) Nonhealing surgical wound: CODE(S): T81.89XA - Other complications of procedures, not elsewhere classified, initial encounter QUALIFIERS: Encounter type: initial encounter Qualified Code(s): T81.89XA - Other complications of procedures, not elsewhere classified, initial encounter (5) Osteomyelitis of ankle: CODE(S): M86.9 - Osteomyelitis, unspecified QUALIFIERS: Laterality: right Osteomyelitis type: subacute Qualified Code(s): M86.271 - Subacute osteomyelitis, right ankle and foot PLAN: Patient tolerated hyperbaric oxygen therapy well and will be continued as per his medical plan. This note was generated with [employer] software. It may contain incorrect words, spelling, and punctuation that were not noted in checking the note before signing.
[2021-01-25 11:08] VITALS: BP 125/76; PULSE 61; RESP 16; TEMP 36.3
--- NOTE | 2021-01-25 12:53 | PN.PCM_ITS ---
History of Present Illness Date of Service: 01/25/21 Chief Complaint: Chronic osteomyelitis of the right ankle; Non healing Post surgical wound of the right ankle. History of Wound: Mr. Stoner is a 20-year-old who presented to the wound center for HBO due to non healing post surgical wound and chronic osteomyelitis. Initial injury was in 2017 and has had several surgeries since then. Most recent surgery was in September 2020. Following which, surgical wound has not completely closed. History of osteomyelitis initially diagnosed in 2019 and during most recent surgery, nonviable bone excised. Had been following up closely with his surgeon. No known history of heart or lung disease. No ear pain or discharge. Recently had Imaging and Blood work done which showed no concerns. Subjective Subjective Improving. No new concerns. Has had 3 applications of epi fix so far Objective Data Objective Data Vital Signs: Vital Signs Temp Pulse Resp BP 97.4 F L 61 16 125/76 H 01/25/21 11:08 01/25/21 11:08 01/25/21 11:08 01/25/21 11:08 Charges/Coding Procedures Integumentary 150xxx-152xx: 28193 Skin sub graft trnk/arm/leg Physical Exam Const alert, oriented x3, no apparent distress and well nourished General Appearance: cooperative and well developed HEENT normocephalic Head and Scalp: atraumatic Eyes PERRL and EOMs intact bilaterally Resp normal respiratory effort and no use of accessory muscles Effort and Inspection: able to speak in complete sentences Skin Wounds: wounds noted Psych Appearance: grossly normal Debridement Note Debridement Note Post-Debridement Measurements and Additional Note: Post-Debridement Measurements/Treatment - Nurse 1 - General Ulcer Assessment Start: 01/02/21 10:06 Freq: Status: Active Protocol: EVARISTO.IDALIA Activity Type Activity Date Activity User E-Sign Co-Sign Detail Recorded Client Recorded Date Recorded By Document 01/04/21 09:19 DL [id number] 01/04/21 09:28 DL Document 01/11/21 09:07 DL [id number] 01/11/21 09:15 DL Document 01/25/21 11:08 ML [id number] 01/25/21 11:11 ML 01/04/21 01/11/21 01/25/21 09:19 09:07 11:08 - Today's Visit Information Type of service Follow-up Visit Follow-up Visit Follow-up Visit (Physician/ENGINEERING TECHNICAL SPECIALIST (Physician/ENGINEERING TECHNICAL SPECIALIST (Physician/ENGINEERING TECHNICAL SPECIALIST ) ) ) Arrival Mode Ambulatory, Ambulatory Ambulatory Crutches Transfer Assistance None None None Patient Identification Verified (Name & Yes Yes Yes ) Patient Requires Transmission-Based No No No Precautions Safety Precautions NA Vital Signs Temperature (97.8 F-99.1 F) 98.5 F 98.3 F 97.4 F L Temperature Source Temporal Temporal Temporal Pulse Rate (60-100) 84 81 61 Pulse Location Monitor Monitor Monitor Respiratory Rate (12-18) 18 18 16 Respiratory rate source Observation Observation Observation Blood Pressure (90/60-120/80) 133/72 H 118/73 125/76 H Blood Pressure Mean (mm Hg) 92 88 92 Source Monitor Monitor Monitor Position Sitting Blood Pressure Location Right Arm History Since Last Visit- (Skip if this is Patient's initial visit) Have you changed medications since your No No No last visit? Any new allergies or adverse reactions No No No Had a fall/change in ADL's that may No No No increase risk of falls Signs or symptoms of abuse and/or No No No neglect since last visit Have you been in the hospital since your No No No last visit? Has dressing in place as prescribed Yes Yes Yes Has compression in place as prescribed Yes No Yes Has offloadiing in place as prescribed N/A N/A N/A Experienced any changes in pain level or No No management Left Footwear Regular Shoe Right Footwear Regular Shoe Pain Scale: 0-10 Numeric Is Patient Pain Free? Yes Yes Yes WC - Nurse 1 - General Ulcer Measurement Start: 01/02/21 10:06 Freq: Status: Active Protocol: Activity Type Activity Date Activity User E-Sign Co-Sign Detail Recorded Client Recorded Date Recorded By Document 01/04/21 09:19 DL [id number] 01/04/21 09:28 DL Document 01/11/21 09:07 DL [id number] 01/11/21 09:15 DL Document 01/25/21 11:08 ML [id number] 01/25/21 11:11 ML 01/04/21 01/11/21 01/25/21 09:19 09:07 11:08 Wound Center Nurse 1 #1 right medial ankle -Current Size (cm) - Length 2.9 1.9 1.8 -Current Size (cm) - Width 1.5 1 1 -Current Size (cm) - Depth 0.6 0.5 0.5 -Total Square Cm 4.35 1.9 1.8 -Photo Taken No No -Exudate Amt Medium Medium -Exudate Type Serosanguineous Serosanguineous Serosanguineous -Wound Margin Distinct, Distinct, Distinct, Outline Outline Outline Attached Attached Attached -Granulation Amt Medium (34-66%) None Present (0 Medium (34-66%) %) -Granulation Quality Red Pale -Slough/Fibrin Yes -Necrosis Amt Medium (34-66%) None Present (0 Medium (34-66%) %) -Necrotic Tissue Type Adherent Slough Adherent Slough -Structure Exposed N/A Fascia -Texture (Radha-wound Skin Appearance) Scarring Scarring Assessed -Moisture (Radha-wound Skin Appearance) No Abnormality No Abnormality Assessed -Color (Radha-wound Skin Appearance) No Abnormality No Abnormality Assessed -Temperature (Radha-wound Skin No Abnormality No Abnormality No Abnormality Appearance) (Pt Warm) (Pt Warm) (Pt Warm) -Tenderness on Palpation (Radha-wound No No Skin Appearance) -Ulcer Cleansing Wound Cleanser Wound Cleanser Rinsed/ Irrigated with Saline -Foul Odor after Cleansing No No -Anesthetic Used 5% Lidocaine 4% Lidocaine 4% Lidocaine Gel,Cetacaine Solution Solution Right Calf (cm) 36.5 37.5 Right Ankle (cm) 26.3 29.5 WC - Nurse 2 - General Ulcer CM Notes Start: 01/02/21 10:06 Freq: Status: Active Protocol: Activity Type Activity Date Activity User E-Sign Co-Sign Detail Recorded Client Recorded Date Recorded By Document 01/04/21 09:35 MW [id number] 01/04/21 09:44 MW Document 01/11/21 09:46 MW [id number] 01/11/21 10:00 MW Edit Result 01/11/21 09:46 MW (1) [id number] 01/12/21 14:42 PL Document 01/25/21 11:19 MW [id number] 01/25/21 11:27 MW (1) #1 right medial ankle - Type of Bioengineered Tissue Epifix => Epifix Mesh - Epifix (per sq cm) 11 => - Epifix Mesh (per sq cm) => 11 01/04/21 01/11/21 01/25/21 09:35 09:46 11:19 Wound Center Nurse 2 #1 right medial ankle -Time 09:37 09:46 11:19 -Correct Patient Yes Yes Yes -Correct Side, Site, Position Yes Yes Yes -Correct Procedure Yes Yes Yes -Procedure Performed Yes Yes Yes -Type of Procedure Debridement Debridement Debridement -Clinical Debridement Subcutaneous Subcutaneous Subcutaneous -Tissue Removed Subcutaneous Subcutaneous Subcutaneous -Post Debridement (cm) - Length 3.0 2.7 2.3 -Post Debridement (cm) - Width 1.4 1.6 0.8 -Post Debridement (cm) - Depth 0.7 0.8 0.6 -Total Square (Post) (cm) 4.20 4.32 1.84 -Area of Debridement (cm) - Length 3.0 2.7 2.3 -Area of Debridement (cm) - Width 1.4 1.6 0.8 -Total Square (Area) (cm) 4.20 4.32 1.84 -Tunneling No No No -Undermining/Tunneling No No No -Circular Undermining No No No -Wound/Ulcer Outcome Not Healed Not Healed Not Healed -Ulcer Cleansing Rinsed/ Rinsed/ Rinsed/ Irrigated with Irrigated with Irrigated with Saline Saline Saline -Foul Odor after Cleansing No No No -Bioengineered Tissue Yes Yes Yes -Type of Bioengineered Tissue Epifix Epifix Mesh Epifix -Expiration Date 08/31/25 09/30/25 08/31/25 -Product Lot Number [id number] -Percent Used 100 100 100 -Lot number of Saline Used [id number] -Bleeding Controlled with Pressure Pressure Pressure -Offloading No No No -Treatment Response Procedure Procedure Procedure Tolerated Well Tolerated Well Tolerated Well -Debridement - Subq, 1st 20sq cm No No No -Apply Skin Sub - 1st 25 sq cm - Legs 1 1 1 -Epifix (per sq cm) 4 4 -Epifix Mesh (per sq cm) 11 Pain Scale: 0-10 Numeric Is Patient Pain Free? Yes Yes Yes WC - Nurse 3 - General Ulcer D/C NN Start: 01/02/21 10:06 Freq: Status: Active Protocol: Activity Type Activity Date Activity User E-Sign Co-Sign Detail Recorded Client Recorded Date Recorded By Document 01/04/21 09:50 AK [id number] 01/04/21 09:51 AK Document 01/11/21 10:05 DL [id number] 01/11/21 10:06 DL Document 01/25/21 11:32 DL [id number] 01/25/21 11:33 DL 01/04/21 01/11/21 01/25/21 09:50 10:05 11:32 Wound Care Nurse 3 #1 right medial ankle -Ulcer Cleansing Rinsed/ Irrigated with Saline -Foul Odor after Cleansing No No No -Primary Dressing Applied NonAdherent Contact Layer -Other Dressing EppiFix Mesh Epifix -Primary Dressing Covered/Secured with Dry Gauze & Dry Gauze & Dry Gauze & Roll Gauze, Roll Gauze, Roll Gauze, Secured with Secured with Secured with Tape Tape Tape Treatment Response Procedure Procedure Tolerated Well Tolerated Well Pain Scale: 0-10 Numeric Is Patient Pain Free? Yes Yes WC - Visit Discharge Discharge Condition Stable Stable Stable Ambulatory Status Ambulatory Ambulatory Ambulatory Transportation Private Auto Private Auto Accompanied by MOM Clinical Summary of Care Provided Yes Wound debrided: Right medial ankle Type of Debridement: Excisional debridement Anesthesia Used: 4% Lidocaine Solution Depth: Down to and including healthy tissue and in the subcutaneous layer Percentage of wound debrided: 100 Instrument Used: 3mm curette Tissue Removed: Slough and devitalized tissue Severity: Fat Layer Exposed Amount of bleeding with debridement: Mild Bleeding Controlled with: Pressure Patient tolerated procedure: Patient tolerated procedure well Assessment/Plan Assessment/Plan (1) Nonhealing surgical wound: CODE(S): T81.89XA - Other complications of procedures, not elsewhere classified, initial encounter QUALIFIERS: Encounter type: initial encounter Qualified Code(s): T81.89XA - Other complications of procedures, not elsewhere classified, initial encounter (2) Osteomyelitis of ankle: CODE(S): M86.9 - Osteomyelitis, unspecified QUALIFIERS: Osteomyelitis type: subacute Laterality: right Qualified Code(s): M86.271 - Subacute osteomyelitis, right ankle and foot (3) Edema of right lower leg: CODE(S): R60.0 - Localized edema PLAN: Improving. Debridement done as documented above, procedure was well-tolerated. 4th application of Epifix done today using 100% of product. Moistened with saline, Adaptic touch over top. Secured with Steri-Strips. Leave in place for a week. Elevate lower extremities when seated and in bed. Continue compression. Increase protein intake, vitamin C and D. His questions were answered and he was advised to call with any further questions or concerns. Follow up in a week. This note was generated with [employer] dictation software. It may contain incorrect words, spelling, and punctuation that were not noted in checking the note before signing.
[2021-01-26 08:21] VITALS: BP 120/67; BP 127/64; PULSE 68; PULSE 86; RESP 16; RESP 17; TEMP 36.4
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
[2021-01-29 11:03] VITALS: BP 125/69; BP 127/71; PULSE 69; PULSE 75; RESP 18; TEMP 36.4; TEMP 36.7
[2021-01-30 08:59] VITALS: BP 123/74; BP 126/70; PULSE 72; PULSE 84; RESP 17; TEMP 36.4
--- NOTE | 2021-01-30 15:32 | PCM.HBO.PN ---
History of Present Illness Date of Service: 01/30/21 Chief Complaint: Chronic osteomyelitis of the right ankle; Non healing Post surgical wound of the right ankle. History of Wound: Mr. Stoner is a 20-year-old who presented to the wound center for HBO due to non healing post surgical wound and chronic osteomyelitis. Initial injury was in 2017 and has had several surgeries since then. Most recent surgery was in September 2020. Following which, surgical wound has not completely closed. History of osteomyelitis initially diagnosed in 2019 and during most recent surgery, nonviable bone excised. Had been following up closely with his surgeon. No known history of heart or lung disease. No ear pain or discharge. Recently had Imaging and Blood work done which showed no concerns. Subjective Subjective Hyperbaric oxygen therapy was administered as per the facility's protocol. Today's session represents the 13th such session of a planned 30 sessions. Hyperbaric oxygen therapy was administered at 2 katelyn for 90 minutes with no air breaks. The patient tolerated hyperbaric oxygen therapy well, without complaints or complications. Upon emergence from the hyperbaric chamber, the patient's vital signs remained stable. He was discharged in good condition. Objective Data Objective Data Vital Signs: Vital Signs Temp Pulse Resp BP 97.5 F L 84 17 126/70 H 01/30/21 08:59 01/30/21 08:59 01/30/21 08:59 01/30/21 08:59 Exam Physical Exam Const alert, oriented x3, no apparent distress and well nourished General Appearance: cooperative and well developed HEENT normocephalic and EAC's normal Head and Scalp: atraumatic Eyes PERRL and EOMs intact bilaterally Resp normal respiratory effort and no use of accessory muscles Effort and Inspection: able to speak in complete sentences Cardio no murmurs Psych affect normal Appearance: grossly normal and well kempt Assessment/Plan Assessment/Plan (1) Chronic osteomyelitis of right ankle: CODE(S): M86.671 - Other chronic osteomyelitis, right ankle and foot (2) Chronic osteomyelitis: CODE(S): M86.60 - Other chronic osteomyelitis, unspecified site (3) Edema of right lower leg: CODE(S): R60.0 - Localized edema (4) Nonhealing surgical wound: CODE(S): T81.89XA - Other complications of procedures, not elsewhere classified, initial encounter QUALIFIERS: Encounter type: initial encounter Qualified Code(s): T81.89XA - Other complications of procedures, not elsewhere classified, initial encounter (5) Osteomyelitis of ankle: CODE(S): M86.9 - Osteomyelitis, unspecified QUALIFIERS: Osteomyelitis type: subacute Laterality: right Qualified Code(s): M86.271 - Subacute osteomyelitis, right ankle and foot PLAN: The patient appears to be tolerating hyperbaric oxygen therapy well, which will be continued as per the patient's medical plan.
== END 2021-01-30 23:59 ==
LOC: WC 08:00
PROVIDERS: PCP Family Medicine; Visit Provider Internal Medicine
DX: T81.89XA Other complications of procedures, not elsewhere classified, initial encounter (principal); Y83.8 Other surgical procedures as the cause of abnormal reaction of the patient, or of later complication, without mention of misadventure at the time of the procedure; R60.0 Localized edema; M86.671 Other chronic osteomyelitis, right ankle and foot; V86.56XA Driver of dirt bike or motor/cross bike injured in nontraffic accident, initial encounter
CPT/HCPCS: 15271; 99183; Q4186; G0277

== ENCOUNTER 2021-03-01 08:00 | Outpatient (RCR) | payer OTHER, SELFPAY ==
[2021-01-31 00:38] VITALS: BP 123/74; PULSE 72; RESP 17; TEMP 36.4
[2021-01-31 08:54] VITALS: BP 107/63; BP 122/65; PULSE 71; PULSE 79; RESP 16; TEMP 36.1
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
--- NOTE | 2021-02-01 08:25 | PCM.HBO.PN ---
History of Present Illness Date of Service: 02/01/21 Chief Complaint: Chronic osteomyelitis of the right ankle; Non healing Post surgical wound of the right ankle. History of Wound: Mr. Stoner is a 20-year-old who presented to the wound center for HBO due to non healing post surgical wound and chronic osteomyelitis. Initial injury was in 2017 and has had several surgeries since then. Most recent surgery was in September 2020. Following which, surgical wound has not completely closed. History of osteomyelitis initially diagnosed in 2019 and during most recent surgery, nonviable bone excised. Had been following up closely with his surgeon. No known history of heart or lung disease. No ear pain or discharge. Recently had Imaging and Blood work done which showed no concerns. Subjective Subjective Hyperbaric oxygen therapy was administered as per the facility's protocol. Today's session represents the 15th such session of a planned 30 sessions. Hyperbaric oxygen therapy was administered at 2 katelyn for 90 minutes with no air breaks. The patient tolerated hyperbaric oxygen therapy well, without complaints or complications. Upon emergence from the hyperbaric chamber, the patient's vital signs remained stable. He was discharged in good condition. Objective Data Objective Data Vital Signs: Vital Signs Temp Pulse Resp BP 96.9 F L 79 16 122/65 H 01/31/21 08:54 01/31/21 08:54 01/31/21 08:54 01/31/21 08:54 Exam Physical Exam Const alert, oriented x3, no apparent distress and well nourished General Appearance: cooperative and well developed HEENT normocephalic Head and Scalp: atraumatic Tympanic Membrane: TM's normal bilaterally Resp normal respiratory effort Effort and Inspection: able to speak in complete sentences Auscultation: clear to auscultation bilaterally Cardio regular rate and regular rhythm Psych Appearance: grossly normal Assessment/Plan Assessment/Plan (1) COVID-19: CODE(S): U07.1 - COVID-19
[2021-02-01 09:50] VITALS: BP 115/63; BP 132/72; PULSE 78; PULSE 86; RESP 16; TEMP 36.4
[2021-02-01 10:32] VITALS: BP 115/63; PULSE 78; RESP 16; TEMP 36.4
--- NOTE | 2021-02-01 13:35 | PCM.WC.PN ---
History of Present Illness Date of Service: 02/02/21 Chief Complaint: Chronic osteomyelitis of the right ankle; Non healing Post surgical wound of the right ankle. History of Wound: Mr. Stoner is a 20-year-old who presented to the wound center for HBO due to non healing post surgical wound and chronic osteomyelitis. Initial injury was in 2017 and has had several surgeries since then. Most recent surgery was in September 2020. Following which, surgical wound has not completely closed. History of osteomyelitis initially diagnosed in 2019 and during most recent surgery, nonviable bone excised. Had been following up closely with his surgeon. No known history of heart or lung disease. No ear pain or discharge. Recently had Imaging and Blood work done which showed no concerns. Subjective Subjective Improving. No new concerns. Has had 4 applications of epi fix so far. Also in hyperbaric oxygen treatment and has tolerated his sessions so far. Objective Data Objective Data Vital Signs: Vital Signs Temp Pulse Resp BP 97.5 F L 78 16 115/63 02/01/21 10:32 02/01/21 10:32 02/01/21 10:32 02/01/21 10:32 Charges/Coding Procedures Integumentary 150xxx-152xx: 13297 Skin sub graft trnk/arm/leg Physical Exam Const alert, oriented x3, no apparent distress and well nourished General Appearance: cooperative and well developed HEENT normocephalic Head and Scalp: atraumatic Eyes PERRL and EOMs intact bilaterally Resp normal respiratory effort and no use of accessory muscles Effort and Inspection: able to speak in complete sentences Skin Wounds: wounds noted Psych Appearance: grossly normal Debridement Note Debridement Note Wound debrided: Right lower extremity Type of Debridement: Excisional debridement Anesthesia Used: 4% Lidocaine Solution Depth: Down to and including healthy tissue and in the subcutaneous layer Percentage of wound debrided: 100 Instrument Used: 3mm curette Tissue Removed: Slough and devitalized tissue Severity: Fat Layer Exposed Amount of bleeding with debridement: Mild Bleeding Controlled with: Pressure Patient tolerated procedure: Patient tolerated procedure well Post-Debridement Measurements and Additional Note: Post-Debridement Measurements/Treatment EVARISTO - Nurse 1 - General Ulcer Assessment Start: 01/31/21 08:54 Freq: Status: Active Protocol: FAIZAN Activity Type Activity Date Activity User E-Sign Co-Sign Detail Recorded Client Recorded Date Recorded By Document 02/01/21 10:32 ML [id number] 02/01/21 10:33 ML 02/01/21 10:32 - Today's Visit Information Type of service Follow-up Visit (Physician/SERVICE WORKER HELPER ) Arrival Mode Ambulatory Patient Identification Verified (Name & Yes ) Patient Requires Transmission-Based No Precautions Safety Precautions NA Vital Signs Temperature (97.8 F-99.1 F) 97.5 F L Temperature Source Temporal Pulse Rate (60-100) 78 Pulse Location Monitor Respiratory Rate (12-18) 16 Respiratory rate source Observation Blood Pressure (90/60-120/80) 115/63 Blood Pressure Mean (mm Hg) 80 Source Monitor Position Sitting Blood Pressure Location Right Arm History Since Last Visit- (Skip if this is Patient's initial visit) Have you changed medications since your No last visit? Any new allergies or adverse reactions No Had a fall/change in ADL's that may No increase risk of falls Signs or symptoms of abuse and/or No neglect since last visit Have you been in the hospital since your No last visit? Has dressing in place as prescribed No Has compression in place as prescribed N/A Has offloadiing in place as prescribed N/A Experienced any changes in pain level or No management Left Footwear Regular Shoe Right Footwear Regular Shoe Pain Scale: 0-10 Numeric Is Patient Pain Free? Yes - Nurse 1 - General Ulcer Measurement Start: 01/31/21 08:54 Freq: Status: Active Protocol: Activity Type Activity Date Activity User E-Sign Co-Sign Detail Recorded Client Recorded Date Recorded By Document 02/01/21 10:32 ML [id number] 02/01/21 10:33 ML 02/01/21 10:32 Wound Center Nurse 1 #1 right medial ankle -Current Size (cm) - Length 1.5 -Current Size (cm) - Width 0.8 -Current Size (cm) - Depth 0.4 -Total Square Cm 1.20 -Exudate Amt Medium -Exudate Type Serosanguineous -Wound Margin Distinct, Outline Attached -Granulation Amt Medium (34-66%) -Slough/Fibrin Yes -Necrosis Amt Medium (34-66%) -Necrotic Tissue Type Adherent Slough -Texture (Radha-wound Skin Appearance) Assessed -Moisture (Radha-wound Skin Appearance) Assessed -Color (Radha-wound Skin Appearance) Assessed -Temperature (Radha-wound Skin No Abnormality Appearance) (Pt Warm) -Tenderness on Palpation (Radha-wound No Skin Appearance) -Ulcer Cleansing Wound Cleanser -Foul Odor after Cleansing No -Anesthetic Used 4% Lidocaine Solution WC - Nurse 2 - General Ulcer CM Notes Start: 01/31/21 08:54 Freq: Status: Active Protocol: Activity Type Activity Date Activity User E-Sign Co-Sign Detail Recorded Client Recorded Date Recorded By Document 02/01/21 11:06 OR [id number] 02/01/21 11:13 OR 02/01/21 11:06 Wound Center Nurse 2 -Time 11:06 -Correct Patient Yes -Correct Side, Site, Position Yes -Correct Procedure Yes -Procedure Performed Yes -Type of Procedure Debridement -Clinical Debridement Subcutaneous -Tissue Removed Subcutaneous -Post Debridement (cm) - Length 2.4 -Post Debridement (cm) - Width 0.7 -Post Debridement (cm) - Depth 0.4 -Total Square (Post) (cm) 1.68 -Area of Debridement (cm) - Length 2.4 -Area of Debridement (cm) - Width 0.7 -Total Square (Area) (cm) 1.68 -Tunneling No -Undermining/Tunneling No -Circular Undermining No -Wound/Ulcer Outcome Not Healed -Ulcer Cleansing Rinsed/ Irrigated with Saline -Foul Odor after Cleansing No -Bioengineered Tissue Yes -Type of Bioengineered Tissue Epifix -Expiration Date 06/05/25 -Product Lot Number [id number] -Percent Used 100 -Lot number of Saline Used [id number] -Bleeding Controlled with Pressure -Offloading No -Treatment Response Procedure Tolerated Well -Debridement - Subq, 1st 20sq cm No -Apply Skin Sub - 1st 25 sq cm - Legs 1 -Epifix (per sq cm) 4 Assessment/Plan Assessment/Plan (1) Nonhealing surgical wound: CODE(S): T81.89XA - Other complications of procedures, not elsewhere classified, initial encounter QUALIFIERS: Encounter type: initial encounter Qualified Code(s): T81.89XA - Other complications of procedures, not elsewhere classified, initial encounter (2) Osteomyelitis of ankle: CODE(S): M86.9 - Osteomyelitis, unspecified QUALIFIERS: Laterality: right Osteomyelitis type: subacute Qualified Code(s): M86.271 - Subacute osteomyelitis, right ankle and foot (3) Edema of right lower leg: CODE(S): R60.0 - Localized edema PLAN: Improving. Debridement done as documented above, procedure was well-tolerated. 5th application of Epifix done today using 100% of product. Moistened with saline, Adaptic touch over top. Secured with Steri-Strips. Leave in place for a week. Elevate lower extremities when seated and in bed. Continue compression. Increase protein intake, vitamin C and D. His questions were answered and he was advised to call with any further questions or concerns. Follow up in a week. This note was generated with [employer] dictation software. It may contain incorrect words, spelling, and punctuation that were not noted in checking the note before signing.
[2021-02-02 08:28] VITALS: BP 133/66; BP 134/71; PULSE 69; PULSE 76; RESP 16; TEMP 36.4
--- NOTE | 2021-02-02 12:51 | PCM.HBO.PN ---
History of Present Illness Date of Service: 02/02/21 Chief Complaint: Chronic osteomyelitis of the right ankle; Non healing Post surgical wound of the right ankle. History of Wound: Mr. Stoner is a 20-year-old who presented to the wound center for HBO due to non healing post surgical wound and chronic osteomyelitis. Initial injury was in 2017 and has had several surgeries since then. Most recent surgery was in September 2020. Following which, surgical wound has not completely closed. History of osteomyelitis initially diagnosed in 2019 and during most recent surgery, nonviable bone excised. Had been following up closely with his surgeon. No known history of heart or lung disease. No ear pain or discharge. Recently had Imaging and Blood work done which showed no concerns. Subjective Subjective Hyperbaric oxygen therapy was administered as per the facility's protocol. Today's session represents the 16th such session of a planned 30 sessions. Hyperbaric oxygen therapy was administered at 2 katelyn for 90 minutes with no air breaks. The patient tolerated hyperbaric oxygen therapy well, without complaints or complications. Upon emergence from the hyperbaric chamber, the patient's vital signs remained stable. He was discharged in good condition. Objective Data Objective Data Vital Signs: Vital Signs Temp Pulse Resp BP 97.6 F L 76 16 134/71 H 02/02/21 08:28 02/02/21 08:28 02/02/21 08:28 02/02/21 08:28 Exam Physical Exam Const alert, oriented x3 and no apparent distress General Appearance: cooperative, comfortable and well developed HEENT normocephalic, head/scalp atraumatic, EAC's normal and TM's normal bilaterally Head and Scalp: normal to inspection and normocephalic Psych mental status grossly normal, thought process normal, cooperative, affect normal and speech normal Nursing Assessment and Debridement Post-Debridement Measurements and Additional Note: Post-Debridement Measurements/Treatment WC - Nurse 1 - General Ulcer Assessment Start: 01/31/21 08:54 Freq: Status: Active Protocol: FAIZAN Activity Type Activity Date Activity User E-Sign Co-Sign Detail Recorded Client Recorded Date Recorded By Document 02/01/21 10:32 ML [id number] 02/01/21 10:33 ML 02/01/21 10:32 - Today's Visit Information Type of service Follow-up Visit (Physician/APPLICATIONS TESTER ) Arrival Mode Ambulatory Patient Identification Verified (Name & Yes ) Patient Requires Transmission-Based No Precautions Safety Precautions NA Vital Signs Temperature (97.8 F-99.1 F) 97.5 F L Temperature Source Temporal Pulse Rate (60-100) 78 Pulse Location Monitor Respiratory Rate (12-18) 16 Respiratory rate source Observation Blood Pressure (90/60-120/80) 115/63 Blood Pressure Mean (mm Hg) 80 Source Monitor Position Sitting Blood Pressure Location Right Arm History Since Last Visit- (Skip if this is Patient's initial visit) Have you changed medications since your No last visit? Any new allergies or adverse reactions No Had a fall/change in ADL's that may No increase risk of falls Signs or symptoms of abuse and/or No neglect since last visit Have you been in the hospital since your No last visit? Has dressing in place as prescribed No Has compression in place as prescribed N/A Has offloadiing in place as prescribed N/A Experienced any changes in pain level or No management Left Footwear Regular Shoe Right Footwear Regular Shoe Pain Scale: 0-10 Numeric Is Patient Pain Free? Yes WC - Nurse 1 - General Ulcer Measurement Start: 01/31/21 08:54 Freq: Status: Active Protocol: Activity Type Activity Date Activity User E-Sign Co-Sign Detail Recorded Client Recorded Date Recorded By Document 02/01/21 10:32 ML [id number] 02/01/21 10:33 ML 02/01/21 10:32 Wound Center Nurse 1 #1 right medial ankle -Current Size (cm) - Length 1.5 -Current Size (cm) - Width 0.8 -Current Size (cm) - Depth 0.4 -Total Square Cm 1.20 -Exudate Amt Medium -Exudate Type Serosanguineous -Wound Margin Distinct, Outline Attached -Granulation Amt Medium (34-66%) -Slough/Fibrin Yes -Necrosis Amt Medium (34-66%) -Necrotic Tissue Type Adherent Slough -Texture (Radha-wound Skin Appearance) Assessed -Moisture (Radha-wound Skin Appearance) Assessed -Color (Radha-wound Skin Appearance) Assessed -Temperature (Radha-wound Skin No Abnormality Appearance) (Pt Warm) -Tenderness on Palpation (Radha-wound No Skin Appearance) -Ulcer Cleansing Wound Cleanser -Foul Odor after Cleansing No -Anesthetic Used 4% Lidocaine Solution EVARISTO - Nurse 2 - General Ulcer CM Notes Start: 01/31/21 08:54 Freq: Status: Active Protocol: Activity Type Activity Date Activity User E-Sign Co-Sign Detail Recorded Client Recorded Date Recorded By Document 02/01/21 11:06 DC [id number] 02/01/21 11:13 DC 02/01/21 11:06 Wound Center Nurse 2 -Time 11:06 -Correct Patient Yes -Correct Side, Site, Position Yes -Correct Procedure Yes -Procedure Performed Yes -Type of Procedure Debridement -Clinical Debridement Subcutaneous -Tissue Removed Subcutaneous -Post Debridement (cm) - Length 2.4 -Post Debridement (cm) - Width 0.7 -Post Debridement (cm) - Depth 0.4 -Total Square (Post) (cm) 1.68 -Area of Debridement (cm) - Length 2.4 -Area of Debridement (cm) - Width 0.7 -Total Square (Area) (cm) 1.68 -Tunneling No -Undermining/Tunneling No -Circular Undermining No -Wound/Ulcer Outcome Not Healed -Ulcer Cleansing Rinsed/ Irrigated with Saline -Foul Odor after Cleansing No -Bioengineered Tissue Yes -Type of Bioengineered Tissue Epifix -Expiration Date 06/05/25 -Product Lot Number [id number] -Percent Used 100 -Lot number of Saline Used [id number] -Bleeding Controlled with Pressure -Offloading No -Treatment Response Procedure Tolerated Well -Debridement - Subq, 1st 20sq cm No -Apply Skin Sub - 1st 25 sq cm - Legs 1 -Epifix (per sq cm) 4 Assessment/Plan Assessment/Plan (1) Chronic osteomyelitis of right ankle: CODE(S): M86.671 - Other chronic osteomyelitis, right ankle and foot (2) Nonhealing surgical wound: CODE(S): T81.89XA - Other complications of procedures, not elsewhere classified, initial encounter QUALIFIERS: Encounter type: initial encounter Qualified Code(s): T81.89XA - Other complications of procedures, not elsewhere classified, initial encounter (3) Osteomyelitis of ankle: CODE(S): M86.9 - Osteomyelitis, unspecified QUALIFIERS: Osteomyelitis type: subacute Laterality: right Qualified Code(s): M86.271 - Subacute osteomyelitis, right ankle and foot PLAN: Patient appears to be tolerating hyperbaric oxygen therapy well, which will be continued as per his medical plan.
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
[2021-02-06 08:25] VITALS: BP 129/77; BP 139/73; PULSE 63; PULSE 81; RESP 16; RESP 17; TEMP 36.1; TEMP 36.4
[2021-02-07 09:02] VITALS: BP 122/72; BP 129/72; PULSE 69; PULSE 75; RESP 16; RESP 17; TEMP 36.4
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
--- NOTE | 2021-02-08 12:52 | PN.PCM_ITS ---
History of Present Illness Date of Service: 02/08/21 Chief Complaint: Chronic osteomyelitis of the right ankle; Non healing Post surgical wound of the right ankle. History of Wound: Mr. Stoner is a 20-year-old who presented to the wound center for HBO due to non healing post surgical wound and chronic osteomyelitis. Initial injury was in 2017 and has had several surgeries since then. Most recent surgery was in September 2020. Following which, surgical wound has not completely closed. History of osteomyelitis initially diagnosed in 2019 and during most recent surgery, nonviable bone excised. Had been following up closely with his surgeon. No known history of heart or lung disease. No ear pain or discharge. Recently had Imaging and Blood work done which showed no concerns. Subjective Subjective Improving. No new concerns. Has had 5 applications of epi fix so far. Also in hyperbaric oxygen treatment which was terminated early yesterday and held today due to bilateral ear pain. Now improved. Objective Data Objective Data Vital Signs: Vital Signs Temp Pulse Resp BP 97.5 F L 75 16 129/72 H 02/07/21 09:02 02/07/21 09:02 02/07/21 09:02 02/07/21 09:02 Charges/Coding Procedures Integumentary 150xxx-152xx: [id number] Skin sub graft trnk/arm/leg Physical Exam Const alert, oriented x3, no apparent distress and well nourished General Appearance: cooperative and well developed HEENT normocephalic Head and Scalp: atraumatic Eyes PERRL and EOMs intact bilaterally Resp normal respiratory effort and no use of accessory muscles Effort and Inspection: able to speak in complete sentences Skin Wounds: wounds noted Psych Appearance: grossly normal Debridement Note Debridement Note Wound debrided: Right lower extremity Type of Debridement: Excisional debridement Anesthesia Used: 4% Lidocaine Solution Depth: Down to and including healthy tissue and in the subcutaneous layer Percentage of wound debrided: 100 Instrument Used: 3mm curette Tissue Removed: Slough and devitalized tissue Severity: Fat Layer Exposed Amount of bleeding with debridement: Mild Bleeding Controlled with: Pressure Patient tolerated procedure: Patient tolerated procedure well Post-Debridement Measurements and Additional Note: Post-Debridement Measurements/Treatment EVARISTO - Nurse 1 - General Ulcer Assessment Start: 01/31/21 08:54 Freq: Status: Active Protocol: FAIZAN Activity Type Activity Date Activity User E-Sign Co-Sign Detail Recorded Client Recorded Date Recorded By Document 02/01/21 10:32 ML [id number] 02/01/21 10:33 ML 02/01/21 10:32 WC - Today's Visit Information Type of service Follow-up Visit (Physician/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 [employer]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 Any new allergies or adverse reactions No Had a fall/change in ADL's that may No increase risk of falls Signs or symptoms of abuse and/or No neglect since last visit Have you been in the hospital since your No last visit? Has dressing in place as prescribed No Has compression in place as prescribed N/A Has offloadiing in place as prescribed N/A Experienced any changes in pain level or No management Left Footwear Regular Shoe Right Footwear Regular Shoe Pain Scale: 0-10 Numeric Is Patient Pain Free? Yes - Nurse 1 - General Ulcer Measurement Start: 01/31/21 08:54 Freq: Status: Active Protocol: Activity Type Activity Date Activity User E-Sign Co-Sign Detail Recorded Client Recorded Date Recorded By Document 02/01/21 10:32 ML [id number] 02/01/21 10:33 ML 02/01/21 10:32 Wound Center Nurse 1 #1 right medial ankle -Current Size (cm) - Length 1.5 -Current Size (cm) - Width 0.8 -Current Size (cm) - Depth 0.4 -Total Square Cm 1.20 -Exudate Amt Medium -Exudate Type Serosanguineous -Wound Margin Distinct, Outline Attached -Granulation Amt Medium (34-66%) -Slough/Fibrin Yes -Necrosis Amt Medium (34-66%) -Necrotic Tissue Type Adherent Slough -Texture (Radha-wound Skin Appearance) Assessed -Moisture (Radha-wound Skin Appearance) Assessed -Color (Radha-wound Skin Appearance) Assessed -Temperature (Radha-wound Skin No Abnormality Appearance) (Pt Warm) -Tenderness on Palpation (Radha-wound No Skin Appearance) -Ulcer Cleansing Wound Cleanser -Foul Odor after Cleansing No -Anesthetic Used 4% Lidocaine Solution - Nurse 2 - General Ulcer CM Notes Start: 01/31/21 08:54 Freq: Status: Active Protocol: Activity Type Activity Date Activity User E-Sign Co-Sign Detail Recorded Client Recorded Date Recorded By Document 02/01/21 11:06 UT [id number] 02/01/21 11:13 UT Document 02/08/21 10:41 UT [id number] 02/08/21 10:47 UT 02/01/21 02/08/21 11:06 10:41 Wound Center Nurse 2 -Time 11:06 10:42 -Correct Patient Yes Yes -Correct Side, Site, Position Yes Yes -Correct Procedure Yes Yes -Procedure Performed Yes Yes -Type of Procedure Debridement Debridement -Clinical Debridement Subcutaneous Subcutaneous -Tissue Removed Subcutaneous Subcutaneous -Post Debridement (cm) - Length 2.4 2.1 -Post Debridement (cm) - Width 0.7 0.5 -Post Debridement (cm) - Depth 0.4 0.4 -Total Square (Post) (cm) 1.68 1.05 -Area of Debridement (cm) - Length 2.4 2.1 -Area of Debridement (cm) - Width 0.7 0.5 -Total Square (Area) (cm) 1.68 1.05 -Tunneling No No -Undermining/Tunneling No No -Circular Undermining No No -Wound/Ulcer Outcome Not Healed Not Healed -Ulcer Cleansing Rinsed/ Rinsed/ Irrigated with Irrigated with Saline Saline -Foul Odor after Cleansing No No -Bioengineered Tissue Yes Yes -Type of Bioengineered Tissue Epifix Epifix -Expiration Date 06/05/25 09/30/25 -Product Lot Number [id number] -Percent Used 100 100 -Lot number of Saline Used [id number] -Bleeding Controlled with Pressure Pressure -Offloading No No -Treatment Response Procedure Procedure Tolerated Well Tolerated Well -Debridement - Subq, 1st 20sq cm No No -Apply Skin Sub - 1st 25 sq cm - Legs 1 1 -Epifix (per sq cm) 4 4 WC - Nurse 3 - General Ulcer D/C NN Start: 01/31/21 08:54 Freq: Status: Active Protocol: Activity Type Activity Date Activity User E-Sign Co-Sign Detail Recorded Client Recorded Date Recorded By Document 02/08/21 10:53 ML [id number] 02/08/21 10:54 ML 02/08/21 10:53 Wound Care Nurse 3 -Ulcer Cleansing Not Cleansed -Foul Odor after Cleansing No -Primary Dressing Covered/Secured with Dry Gauze & Roll Gauze, Secured with Tape Pain Scale: 0-10 Numeric Is Patient Pain Free? Yes WC - Visit Discharge Discharge Condition Stable Ambulatory Status Ambulatory Transportation Private Auto Medication Reconcilliation completed & No provided to patient/care provider Clinical Summary of Care Provided Yes Assessment/Plan Assessment/Plan (1) Nonhealing surgical wound: CODE(S): T81.89XA - Other complications of procedures, not elsewhere classified, initial encounter QUALIFIERS: Encounter type: initial encounter Qualified Code(s): T81.89XA - Other complications of procedures, not elsewhere classified, initial encounter (2) Osteomyelitis of ankle: CODE(S): M86.9 - Osteomyelitis, unspecified QUALIFIERS: Osteomyelitis type: subacute Laterality: right Qualified Code(s): M86.271 - Subacute osteomyelitis, right ankle and foot (3) Edema of right lower leg: CODE(S): R60.0 - Localized edema PLAN: Improving. Debridement done as documented above, procedure was well-tolerated. 6th application of Epifix done today using 100% of product. Moistened with saline, Adaptic touch over top. Secured with Steri-Strips. Leave in place for a week. Elevate lower extremities when seated and in bed. Continue compression. Increase protein intake, Zinc, vitamin C and D. His questions were answered and he was advised to call with any further questions or concerns. Follow up in a week. This note was generated with [employer] dictation software. It may contain incorrect words, spelling, and punctuation that were not noted in checking the note before signing.
[2021-02-12 09:25] VITALS: BP 120/50; BP 121/68; PULSE 64; PULSE 75; RESP 16; TEMP 36.3
--- NOTE | 2021-02-12 12:48 | PCM.HBO.PN ---
History of Present Illness Date of Service: 02/12/21 Chief Complaint: Chronic osteomyelitis of the right ankle; Non healing Post surgical wound of the right ankle. History of Wound: Mr. Stoner is a 20-year-old who presented to the wound center for HBO due to non healing post surgical wound and chronic osteomyelitis. Initial injury was in 2017 and has had several surgeries since then. Most recent surgery was in September 2020. Following which, surgical wound has not completely closed. History of osteomyelitis initially diagnosed in 2019 and during most recent surgery, nonviable bone excised. Had been following up closely with his surgeon. No known history of heart or lung disease. Developed right ear pain and had a Tympanostomy tube place 02/09/21. Left TM with no redness or discharge. Recently had Imaging and Blood work done which showed no concerns. Subjective Subjective Hyperbaric oxygen therapy was administered as per the facility's protocol. Today's session represents the 17th such session of a planned 30 sessions. Hyperbaric oxygen therapy was administered at 2 katelyn for 90 minutes with no air breaks. The patient tolerated hyperbaric oxygen therapy well, without complaints or complications. Upon emergence from the hyperbaric chamber, the patient's vital signs remained stable. He was discharged in good condition. Objective Data Objective Data Vital Signs: Vital Signs Temp Pulse Resp BP 97.4 F L 75 16 121/68 H 02/12/21 09:25 02/12/21 09:25 02/12/21 09:25 02/12/21 09:25 Exam Physical Exam Const alert, oriented x3 and no apparent distress General Appearance: cooperative HEENT normocephalic HEENT Narrative: Left TM normal, Right tympanostomy tube in place, no redness or drainage visualized. Eyes PERRL Resp normal respiratory effort and clear to auscultation bilaterally Cardio regular rate and regular rhythm Psych Appearance: grossly normal and well kempt Charges/Coding Addendum Addendum: [id number] - HBO Assessment/Plan Assessment/Plan (1) Chronic osteomyelitis of right ankle: CODE(S): M86.671 - Other chronic osteomyelitis, right ankle and foot (2) Chronic osteomyelitis: CODE(S): M86.60 - Other chronic osteomyelitis, unspecified site (3) Edema of right lower leg: CODE(S): R60.0 - Localized edema (4) Nonhealing surgical wound: CODE(S): T81.89XA - Other complications of procedures, not elsewhere classified, initial encounter QUALIFIERS: Encounter type: initial encounter Qualified Code(s): T81.89XA - Other complications of procedures, not elsewhere classified, initial encounter
[2021-02-13 08:46] VITALS: BP 130/68; BP 138/73; PULSE 66; PULSE 78; RESP 16; RESP 17; TEMP 36.1
--- NOTE | 2021-02-13 12:37 | PCM.HBO.PN ---
History of Present Illness Date of Service: 02/13/21 Chief Complaint: Chronic osteomyelitis of the right ankle; Non healing Post surgical wound of the right ankle. History of Wound: Mr. Stoner is a 20-year-old who presented to the wound center for HBO due to non healing post surgical wound and chronic osteomyelitis. Initial injury was in 2017 and has had several surgeries since then. Most recent surgery was in September 2020. Following which, surgical wound has not completely closed. History of osteomyelitis initially diagnosed in 2019 and during most recent surgery, nonviable bone excised. Had been following up closely with his surgeon. No known history of heart or lung disease. Developed right ear pain and had a Tympanostomy tube place 02/09/21. Left TM with no redness or discharge. Recently had Imaging and Blood work done which showed no concerns. Subjective Subjective Hyperbaric oxygen therapy was administered as per the facility's protocol. Today's session represents the 19th session of a planned 30 such sessions. Hyperbaric oxygen therapy was administered at 2 katelyn for 90 minutes with no air breaks. The patient tolerated hyperbaric oxygen therapy well, without complaints or complications. Upon emergence from the hyperbaric chamber, the patient's vital signs remained stable. He was discharged in good condition. Objective Data Objective Data Vital Signs: Vital Signs Temp Pulse Resp BP 97.0 F L 78 16 138/73 H 02/13/21 08:46 02/13/21 08:46 02/13/21 08:46 02/13/21 08:46 Exam Physical Exam Const alert, oriented x3, no apparent distress and well nourished General Appearance: cooperative and well developed HEENT normocephalic and EAC's normal Head and Scalp: atraumatic Eyes PERRL and EOMs intact bilaterally Resp normal respiratory effort and no use of accessory muscles Effort and Inspection: able to speak in complete sentences Psych affect normal Appearance: grossly normal Assessment/Plan Assessment/Plan (1) Chronic osteomyelitis of right ankle: CODE(S): M86.671 - Other chronic osteomyelitis, right ankle and foot (2) Chronic osteomyelitis: CODE(S): M86.60 - Other chronic osteomyelitis, unspecified site (3) Edema of right lower leg: CODE(S): R60.0 - Localized edema (4) Nonhealing surgical wound: CODE(S): T81.89XA - Other complications of procedures, not elsewhere classified, initial encounter QUALIFIERS: Encounter type: initial encounter Qualified Code(s): T81.89XA - Other complications of procedures, not elsewhere classified, initial encounter (5) Osteomyelitis of ankle: CODE(S): M86.9 - Osteomyelitis, unspecified QUALIFIERS: Osteomyelitis type: subacute Laterality: right Qualified Code(s): M86.271 - Subacute osteomyelitis, right ankle and foot PLAN: The patient appears to be tolerating hyperbaric oxygen therapy well, which will be continued as per the patient's medical plan.
[2021-02-14 09:13] VITALS: BP 128/73; BP 136/71; PULSE 64; PULSE 86; RESP 17; TEMP 36.1
--- NOTE | 2021-02-14 11:47 | PCM.HBO.PN ---
History of Present Illness Date of Service: 02/14/21 Chief Complaint: Chronic osteomyelitis of the right ankle; Non healing Post surgical wound of the right ankle. History of Wound: Mr. Stoner is a 20-year-old who presented to the wound center for HBO due to non healing post surgical wound and chronic osteomyelitis. Initial injury was in 2018 and has had several surgeries since then. Most recent surgery was in September 2020. Following which, surgical wound has not completely closed. History of osteomyelitis initially diagnosed in 2019 and during most recent surgery, nonviable bone excised. Had been following up closely with his surgeon. No known history of heart or lung disease. Developed right ear pain and had a Tympanostomy tube place 02/09/21. Left TM with no redness or discharge. Recently had Imaging and Blood work done which showed no concerns. Progress of Wound: Mr. Stoner is a 20-year-old who presented to the wound center for HBO due to non healing post surgical wound and chronic osteomyelitis. Initial injury was in 2018 and has had several surgeries since then. Most recent surgery was in September 2020. Following which, surgical wound has not completely closed. History of osteomyelitis initially diagnosed in 2019 and during most recent surgery, nonviable bone excised. Had been following up closely with his surgeon. No known history of heart or lung disease. Developed right ear pain and had a Tympanostomy tube place 02/09/21. Left TM with no redness or discharge. Recently had Imaging and Blood work done which showed no concerns. Subjective Subjective Hyperbaric oxygen therapy was administered as per the facility's protocol. Today's session represents the 20th session of a planned 30 such sessions. Hyperbaric oxygen therapy was administered at 2 katelyn for 90 minutes with no air breaks. The patient tolerated hyperbaric oxygen therapy well, without complaints or complications. Upon emergence from the hyperbaric chamber, the patient's vital signs remained stable. He was discharged in good condition. Objective Data Objective Data Vital Signs: Vital Signs Temp Pulse Resp BP 97.0 F L 86 17 136/71 H 02/14/21 09:13 02/14/21 09:13 02/14/21 09:13 02/14/21 09:13 Exam Physical Exam Const alert, oriented x3 and no apparent distress General Appearance: cooperative HEENT normocephalic Eyes PERRL Resp normal respiratory effort, no use of accessory muscles and clear to auscultation bilaterally Cardio regular rate and regular rhythm Psych affect normal Charges/Coding Wound Center CF Procedures HBO Supervision: [id number] Hyperbaric Oxygen; supervision Assessment/Plan Assessment/Plan (1) Chronic osteomyelitis of right ankle: CODE(S): M86.671 - Other chronic osteomyelitis, right ankle and foot (2) Chronic osteomyelitis: CODE(S): M86.60 - Other chronic osteomyelitis, unspecified site (3) Edema of right lower leg: CODE(S): R60.0 - Localized edema (4) Nonhealing surgical wound: CODE(S): T81.89XA - Other complications of procedures, not elsewhere classified, initial encounter QUALIFIERS: Encounter type: initial encounter Qualified Code(s): T81.89XA - Other complications of procedures, not elsewhere classified, initial encounter (5) Osteomyelitis of ankle: CODE(S): M86.9 - Osteomyelitis, unspecified QUALIFIERS: Osteomyelitis type: subacute Laterality: right Qualified Code(s): M86.271 - Subacute osteomyelitis, right ankle and foot PLAN: The patient appears to be tolerating hyperbaric oxygen therapy well, which will be continued as per the patient's medical plan.
[2021-02-15 09:35] VITALS: BP 119/69; BP 134/74; PULSE 68; PULSE 81; RESP 16; RESP 18; TEMP 36.6
[2021-02-15 11:05] VITALS: BP 119/69; PULSE 81; RESP 16; TEMP 36.6
--- NOTE | 2021-02-15 11:11 | PCM.HBO.PN ---
History of Present Illness Date of Service: 02/15/21 Chief Complaint: Chronic osteomyelitis of the right ankle; Non healing Post surgical wound of the right ankle. Progress of Wound: Mr. Stoner is a 20-year-old who presented to the wound center for HBO due to non healing post surgical wound and chronic osteomyelitis. Initial injury was in 2017 and has had several surgeries since then. Most recent surgery was in September 2020. Following which, surgical wound has not completely closed. History of osteomyelitis initially diagnosed in 2019 and during most recent surgery, nonviable bone excised. Had been following up closely with his surgeon. No known history of heart or lung disease. Developed right ear pain and had a Tympanostomy tube place 02/08/21. Left TM with no redness or discharge. Recently had Imaging and Blood work done which showed no concerns. Subjective Subjective Hyperbaric oxygen therapy was administered as per the facility's protocol. Today's session represents the 21st session of a planned 30 such sessions. Hyperbaric oxygen therapy was administered at 2 katelyn for 90 minutes with no air breaks. The patient tolerated hyperbaric oxygen therapy well, without complaints or complications. Upon emergence from the hyperbaric chamber, the patient's vital signs remained stable. He was discharged in good condition. Objective Data Objective Data Vital Signs: Vital Signs Temp Pulse Resp BP 97.9 F 81 16 119/69 02/15/21 09:35 02/15/21 09:35 02/15/21 09:35 02/15/21 09:35 Exam Physical Exam Const alert and oriented x3 General Appearance: cooperative HEENT normocephalic Head and Scalp: atraumatic Eyes PERRL Resp normal respiratory effort and clear to auscultation bilaterally Cardio regular rate and regular rhythm Psych affect normal Charges/Coding Wound Center CF Procedures HBO Supervision: [id number] Hyperbaric Oxygen; supervision Assessment/Plan Assessment/Plan (1) Chronic osteomyelitis of right ankle: CODE(S): M86.671 - Other chronic osteomyelitis, right ankle and foot (2) Chronic osteomyelitis: CODE(S): M86.60 - Other chronic osteomyelitis, unspecified site (3) Edema of right lower leg: CODE(S): R60.0 - Localized edema (4) Nonhealing surgical wound: CODE(S): T81.89XA - Other complications of procedures, not elsewhere classified, initial encounter QUALIFIERS: Encounter type: initial encounter Qualified Code(s): T81.89XA - Other complications of procedures, not elsewhere classified, initial encounter (5) Osteomyelitis of ankle: CODE(S): M86.9 - Osteomyelitis, unspecified QUALIFIERS: Laterality: right Osteomyelitis type: subacute Qualified Code(s): M86.271 - Subacute osteomyelitis, right ankle and foot PLAN: The patient appears to be tolerating hyperbaric oxygen therapy well, which will be continued as per the patient's medical plan.
--- NOTE | 2021-02-15 13:34 | PCM.WC.PN ---
History of Present Illness Date of Service: 02/15/21 Chief Complaint: Chronic osteomyelitis of the right ankle; Non healing Post surgical wound of the right ankle. History of Wound: Mr. Stoner is a 20-year-old who presented to the wound center for HBO due to non healing post surgical wound and chronic osteomyelitis. Initial injury was in 2018 and has had several surgeries since then. Most recent surgery was in September 2020. Following which, surgical wound has not completely closed. History of osteomyelitis initially diagnosed in 2019 and during most recent surgery, nonviable bone excised. Had been following up closely with his surgeon. No known history of heart or lung disease. Developed right ear pain and had a Tympanostomy tube place 02/09/21. Left TM with no redness or discharge. Recently had Imaging and Blood work done which showed no concerns. Progress of Wound: Mr. Stoner is a 20-year-old who presented to the wound center for HBO due to non healing post surgical wound and chronic osteomyelitis. Initial injury was in 2018 and has had several surgeries since then. Most recent surgery was in September 2020. Following which, surgical wound has not completely closed. History of osteomyelitis initially diagnosed in 2019 and during most recent surgery, nonviable bone excised. Had been following up closely with his surgeon. No known history of heart or lung disease. Developed right ear pain and had a Tympanostomy tube place 02/08/21. Left TM with no redness or discharge. Recently had Imaging and Blood work done which showed no concerns. Subjective Subjective Improving. No new concerns. Has had 6 applications of epi fix so far. Also in hyperbaric oxygen treatment which he is tolerating well. Objective Data Objective Data Vital Signs: Vital Signs Temp Pulse Resp BP 97.9 F 81 16 119/69 02/15/21 11:05 02/15/21 11:05 02/15/21 11:05 02/15/21 11:05 Charges/Coding Procedures Integumentary 150xxx-152xx: 10253 Skin sub graft trnk/arm/leg Physical Exam Const alert, oriented x3, no apparent distress and well nourished General Appearance: cooperative and well developed HEENT normocephalic Head and Scalp: atraumatic Eyes PERRL and EOMs intact bilaterally Resp normal respiratory effort and no use of accessory muscles Effort and Inspection: able to speak in complete sentences Skin Wounds: wounds noted Psych Appearance: grossly normal Debridement Note Debridement Note Wound debrided: Right lower extremity Type of Debridement: Excisional debridement Anesthesia Used: 4% Lidocaine Solution Depth: Down to and including healthy tissue and in the subcutaneous layer Percentage of wound debrided: 100 Instrument Used: 3mm curette Tissue Removed: Slough and devitalized tissue Severity: Fat Layer Exposed Amount of bleeding with debridement: Mild Bleeding Controlled with: Pressure Patient tolerated procedure: Patient tolerated procedure well Post-Debridement Measurements and Additional Note: Post-Debridement Measurements/Treatment - Nurse 1 - General Ulcer Assessment Start: 01/31/21 08:54 Freq: Status: Active Protocol: EVARISTOHoardEXT Activity Type Activity Date Activity User E-Sign Co-Sign Detail Recorded Client Recorded Date Recorded By Document 02/01/21 10:32 ML [id number] 02/01/21 10:33 ML Document 02/15/21 11:05 ML [id number] 02/15/21 11:08 ML 02/01/21 02/15/21 10:32 11:05 - Today's Visit Information Type of service Follow-up Visit Follow-up Visit (Physician/MACHINE HEEL SEAT LASTER (Physician/MACHINE HEEL SEAT LASTER ) ) Arrival Mode Ambulatory Ambulatory Transfer Assistance None Patient Identification Verified (Name & Yes Yes ) Patient Requires Transmission-Based No No Precautions Safety Precautions NA NA Vital Signs Temperature (97.8 F-99.1 F) 97.5 F L 97.9 F Temperature Source Temporal Temporal Pulse Rate (60-100) 78 81 Pulse Location Monitor Monitor Respiratory Rate (12-18) 16 16 Respiratory rate source Observation Monitor Blood Pressure (90/60-120/80) 115/63 119/69 Blood Pressure Mean (mm Hg) 80 85 Source Monitor Manual Position Sitting Sitting Blood Pressure Location Right Arm Left Arm History Since Last Visit- (Skip if this is Patient's initial visit) Have you changed medications since your No No last visit? Any new allergies or adverse reactions No No Had a fall/change in ADL's that may No No increase risk of falls Signs or symptoms of abuse and/or No No neglect since last visit Have you been in the hospital since your No No last visit? Has dressing in place as prescribed No Yes Has compression in place as prescribed N/A No Has offloadiing in place as prescribed N/A N/A Experienced any changes in pain level or No No management Left Footwear Regular Shoe Regular Shoe Right Footwear Regular Shoe Regular Shoe Pain Scale: 0-10 Numeric Is Patient Pain Free? Yes No WC - Nurse 1 - General Ulcer Measurement Start: 01/31/21 08:54 Freq: Status: Active Protocol: Activity Type Activity Date Activity User E-Sign Co-Sign Detail Recorded Client Recorded Date Recorded By Document 02/01/21 10:32 ML [id number] 02/01/21 10:33 ML Document 02/15/21 11:05 ML [id number] 02/15/21 11:08 ML 02/01/21 02/15/21 10:32 11:05 Wound Center Nurse 1 #1 right medial ankle -Current Size (cm) - Length 1.5 0.8 -Current Size (cm) - Width 0.8 0.3 -Current Size (cm) - Depth 0.4 0.2 -Total Square Cm 1.20 0.24 -Exudate Amt Medium Medium -Exudate Type Serosanguineous Serosanguineous -Wound Margin Distinct, Distinct, Outline Outline Attached Attached -Granulation Amt Medium (34-66%) Medium (34-66%) -Granulation Quality Pale -Slough/Fibrin Yes Yes -Necrosis Amt Medium (34-66%) Medium (34-66%) -Necrotic Tissue Type Adherent Slough Adherent Slough -Texture (Radha-wound Skin Appearance) Assessed Assessed -Moisture (Radha-wound Skin Appearance) Assessed Assessed -Color (Radha-wound Skin Appearance) Assessed Assessed -Temperature (Radha-wound Skin No Abnormality No Abnormality Appearance) (Pt Warm) (Pt Warm) -Tenderness on Palpation (Radha-wound No No Skin Appearance) -Ulcer Cleansing Wound Cleanser Wound Cleanser -Foul Odor after Cleansing No -Anesthetic Used 4% Lidocaine 4% Lidocaine Solution Solution WC - Nurse 2 - General Ulcer CM Notes Start: 01/31/21 08:54 Freq: Status: Active Protocol: Activity Type Activity Date Activity User E-Sign Co-Sign Detail Recorded Client Recorded Date Recorded By Document 02/01/21 11:06 WV [id number] 02/01/21 11:13 WV Document 02/08/21 10:41 [id number] [id number] 02/08/21 10:47 W[place] Document 02/15/21 11:13 [id number] 02/15/21 11:20 02/01/21 02/08/21 02/15/21 11:06 10:41 11:13 Wound Center Nurse 2 -Time 11:06 10:42 11:13 -Correct Patient Yes Yes Yes -Correct Side, Site, Position Yes Yes Yes -Correct Procedure Yes Yes Yes -Procedure Performed Yes Yes Yes -Type of Procedure Debridement Debridement Debridement -Clinical Debridement Subcutaneous Subcutaneous Subcutaneous -Tissue Removed Subcutaneous Subcutaneous Subcutaneous -Post Debridement (cm) - Length 2.4 2.1 1.5 -Post Debridement (cm) - Width 0.7 0.5 0.6 -Post Debridement (cm) - Depth 0.4 0.4 0.3 -Total Square (Post) (cm) 1.68 1.05 0.90 -Area of Debridement (cm) - Length 2.4 2.1 1.5 -Area of Debridement (cm) - Width 0.7 0.5 0.6 -Total Square (Area) (cm) 1.68 1.05 0.90 -Tunneling No No No -Undermining/Tunneling No No No -Circular Undermining No No No -Wound/Ulcer Outcome Not Healed Not Healed Not Healed -Ulcer Cleansing Rinsed/ Rinsed/ Rinsed/ Irrigated with Irrigated with Irrigated with Saline Saline Saline -Foul Odor after Cleansing No No No -Bioengineered Tissue Yes Yes Yes -Type of Bioengineered Tissue Epifix Epifix Epifix -Expiration Date 06/05/25 09/30/25 09/30/25 -Product Lot Number [id number] -Percent Used 100 100 100 -Lot number of Saline Used [id number] -Bleeding Controlled with Pressure Pressure Pressure -Offloading No No No -Treatment Response Procedure Procedure Procedure Tolerated Well Tolerated Well Tolerated Well -Debridement - Subq, 1st 20sq cm No No No -Apply Skin Sub - 1st 25 sq cm - Legs 1 1 1 -Epifix (per sq cm) 4 4 4 Pain Scale: 0-10 Numeric Is Patient Pain Free? Yes WC - Nurse 3 - General Ulcer D/C NN Start: 01/31/21 08:54 Freq: Status: Active Protocol: Activity Type Activity Date Activity User E-Sign Co-Sign Detail Recorded Client Recorded Date Recorded By Document 02/08/21 10:53 ML [id number] 02/08/21 10:54 ML Document 02/15/21 11:26 AK [id number] 02/15/21 11:26 AK 02/08/21 02/15/21 10:53 11:26 Wound Care Nurse 3 #1 right medial ankle -Ulcer Cleansing Not Cleansed Rinsed/ Irrigated with Saline -Foul Odor after Cleansing No No -Negative Pressure Wound Therapy N/A -Primary Dressing Covered/Secured with Dry Gauze & Dry Gauze & Roll Gauze, Roll Gauze, Secured with Secured with Tape Tape Pain Scale: 0-10 Numeric Is Patient Pain Free? Yes WC - Visit Discharge Discharge Condition Stable Stable Ambulatory Status Ambulatory Ambulatory Transportation Private Auto Private Auto Medication Reconcilliation completed & No No provided to patient/care provider Clinical Summary of Care Provided Yes Yes Assessment/Plan Assessment/Plan (1) Nonhealing surgical wound: CODE(S): T81.89XA - Other complications of procedures, not elsewhere classified, initial encounter QUALIFIERS: Encounter type: initial encounter Qualified Code(s): T81.89XA - Other complications of procedures, not elsewhere classified, initial encounter (2) Osteomyelitis of ankle: CODE(S): M86.9 - Osteomyelitis, unspecified QUALIFIERS: Osteomyelitis type: subacute Laterality: right Qualified Code(s): M86.271 - Subacute osteomyelitis, right ankle and foot (3) Edema of right lower leg: CODE(S): R60.0 - Localized edema PLAN: Improving. Debridement done as documented above, procedure was well-tolerated. 7th application of Epifix done today using 100% of product. Moistened with saline, Adaptic touch over top. Secured with Steri-Strips. Leave in place for a week. Elevate lower extremities when seated and in bed. Continue compression. Increase protein intake, Zinc, vitamin C and D. His questions were answered and he was advised to call with any further questions or concerns. Follow up in a week. This note was generated with [employer] dictation software. It may contain incorrect words, spelling, and punctuation that were not noted in checking the note before signing.
[2021-02-16 09:14] VITALS: BP 126/73; BP 132/67; PULSE 65; PULSE 78; RESP 16; TEMP 36.4
--- NOTE | 2021-02-16 11:33 | PCM.HBO.PN ---
History of Present Illness Date of Service: 02/16/21 Chief Complaint: Chronic osteomyelitis of the right ankle; Non healing Post surgical wound of the right ankle. History of Wound: Mr. Stoner is a 20-year-old who presented to the wound center for HBO due to non healing post surgical wound and chronic osteomyelitis. Initial injury was in 2018 and has had several surgeries since then. Most recent surgery was in September 2020. Following which, surgical wound has not completely closed. History of osteomyelitis initially diagnosed in 2019 and during most recent surgery, nonviable bone excised. Had been following up closely with his surgeon. No known history of heart or lung disease. Developed right ear pain and had a Tympanostomy tube place 02/09/21. Left TM with no redness or discharge. Recently had Imaging and Blood work done which showed no concerns. Progress of Wound: Mr. Stoner is a 20-year-old who presented to the wound center for HBO due to non healing post surgical wound and chronic osteomyelitis. Initial injury was in 2018 and has had several surgeries since then. Most recent surgery was in September 2020. Following which, surgical wound has not completely closed. History of osteomyelitis initially diagnosed in 2019 and during most recent surgery, nonviable bone excised. Had been following up closely with his surgeon. No known history of heart or lung disease. Developed right ear pain and had a Tympanostomy tube place 02/08/21. Left TM with no redness or discharge. Recently had Imaging and Blood work done which showed no concerns. Subjective Subjective Hyperbaric oxygen therapy was administered as per the facility's protocol. Today's session represents the 22nd session of a planned 30 such sessions. Hyperbaric oxygen therapy was administered at 2 katelyn for 90 minutes with no air breaks. The patient tolerated hyperbaric oxygen therapy well, without complaints or complications. Upon emergence from the hyperbaric chamber, the patient's vital signs remained stable. His bilateral ear canals showed purulent drainage and erythema which is otitis externa. He was discharged in good condition. Objective Data Objective Data Vital Signs: Vital Signs Temp Pulse Resp BP 97.6 F L 78 16 132/67 H 02/16/21 09:14 02/16/21 09:14 02/16/21 09:14 02/16/21 09:14 Exam Physical Exam Const alert, oriented x3 and no apparent distress General Appearance: cooperative, comfortable and well developed HEENT normocephalic, head/scalp atraumatic and TM's normal bilaterally HEENT Narrative: EAC mildly erythematous with purulent drainage in EAC, R TM with typanostomy tube present and patent Psych mental status grossly normal, thought process normal, cooperative, affect normal and speech normal Nursing Assessment and Debridement Post-Debridement Measurements and Additional Note: Post-Debridement Measurements/Treatment EVARISTO - Nurse 1 - General Ulcer Assessment Start: 01/31/21 08:54 Freq: Status: Active Protocol: FAIZAN Activity Type Activity Date Activity User E-Sign Co-Sign Detail Recorded Client Recorded Date Recorded By Document 02/15/21 11:05 ML [id number] 02/15/21 11:08 ML 02/15/21 11:05 WC - Today's Visit Information Type of service Follow-up Visit (Physician/MACHINE FEEDER FLOORPERSON ) Arrival Mode Ambulatory Transfer Assistance None Patient Identification Verified (Name & Yes ) Patient Requires Transmission-Based No Precautions Safety Precautions NA Vital Signs Temperature (97.8 F-99.1 F) 97.9 F Temperature Source Temporal Pulse Rate (60-100) 81 Pulse Location Monitor Respiratory Rate (12-18) 16 Respiratory rate source Monitor Blood Pressure (90/60-120/80) 119/69 Blood Pressure Mean (mm Hg) 85 Source Manual Position Sitting Blood Pressure Location Left Arm History Since Last Visit- (Skip if this is Patient's initial visit) Have you changed medications since your No last visit? Any new allergies or adverse reactions No Had a fall/change in ADL's that may No increase risk of falls Signs or symptoms of abuse and/or No neglect since last visit Have you been in the hospital since your No last visit? Has dressing in place as prescribed Yes Has compression in place as prescribed No Has offloadiing in place as prescribed N/A Experienced any changes in pain level or No management Left Footwear Regular Shoe Right Footwear Regular Shoe Pain Scale: 0-10 Numeric Is Patient Pain Free? No EVARISTO - Nurse 1 - General Ulcer Measurement Start: 01/31/21 08:54 Freq: Status: Active Protocol: Activity Type Activity Date Activity User E-Sign Co-Sign Detail Recorded Client Recorded Date Recorded By Document 02/15/21 11:05 ML [id number] 02/15/21 11:08 ML 02/15/21 11:05 Wound Center Nurse 1 #1 right medial ankle -Current Size (cm) - Length 0.8 -Current Size (cm) - Width 0.3 -Current Size (cm) - Depth 0.2 -Total Square Cm 0.24 -Exudate Amt Medium -Exudate Type Serosanguineous -Wound Margin Distinct, Outline Attached -Granulation Amt Medium (34-66%) -Granulation Quality Pale -Slough/Fibrin Yes -Necrosis Amt Medium (34-66%) -Necrotic Tissue Type Adherent Slough -Texture (Radha-wound Skin Appearance) Assessed -Moisture (Radha-wound Skin Appearance) Assessed -Color (Radha-wound Skin Appearance) Assessed -Temperature (Radha-wound Skin No Abnormality Appearance) (Pt Warm) -Tenderness on Palpation (Radha-wound No Skin Appearance) -Ulcer Cleansing Wound Cleanser -Anesthetic Used 4% Lidocaine Solution WC - Nurse 2 - General Ulcer CM Notes Start: 01/31/21 08:54 Freq: Status: Active Protocol: Activity Type Activity Date Activity User E-Sign Co-Sign Detail Recorded Client Recorded Date Recorded By Document 02/15/21 11:13 MW [id number] 02/15/21 11:20 MW 02/15/21 11:13 Wound Center Nurse 2 -Time 11:13 -Correct Patient Yes -Correct Side, Site, Position Yes -Correct Procedure Yes -Procedure Performed Yes -Type of Procedure Debridement -Clinical Debridement Subcutaneous -Tissue Removed Subcutaneous -Post Debridement (cm) - Length 1.5 -Post Debridement (cm) - Width 0.6 -Post Debridement (cm) - Depth 0.3 -Total Square (Post) (cm) 0.90 -Area of Debridement (cm) - Length 1.5 -Area of Debridement (cm) - Width 0.6 -Total Square (Area) (cm) 0.90 -Tunneling No -Undermining/Tunneling No -Circular Undermining No -Wound/Ulcer Outcome Not Healed -Ulcer Cleansing Rinsed/ Irrigated with Saline -Foul Odor after Cleansing No -Bioengineered Tissue Yes -Type of Bioengineered Tissue Epifix -Expiration Date 09/30/25 -Product Lot Number [id number] -Percent Used 100 -Lot number of Saline Used [id number] -Bleeding Controlled with Pressure -Offloading No -Treatment Response Procedure Tolerated Well -Debridement - Subq, 1st 20sq cm No -Apply Skin Sub - 1st 25 sq cm - Legs 1 -Epifix (per sq cm) 4 Pain Scale: 0-10 Numeric Is Patient Pain Free? Yes WC - Nurse 3 - General Ulcer D/C NN Start: 01/31/21 08:54 Freq: Status: Active Protocol: Activity Type Activity Date Activity User E-Sign Co-Sign Detail Recorded Client Recorded Date Recorded By Document 02/15/21 11:26 MARK [id number] 02/15/21 11:26 MARK 02/15/21 11:26 Wound Care Nurse 3 #1 right medial ankle -Ulcer Cleansing Rinsed/ Irrigated with Saline -Foul Odor after Cleansing No -Negative Pressure Wound Therapy N/A -Primary Dressing Covered/Secured with Dry Gauze & Roll Gauze, Secured with Tape WC - Visit Discharge Discharge Condition Stable Ambulatory Status Ambulatory Transportation Private Auto Medication Reconcilliation completed & No provided to patient/care provider Clinical Summary of Care Provided Yes Assessment/Plan Assessment/Plan (1) Chronic osteomyelitis of right ankle: CODE(S): M86.671 - Other chronic osteomyelitis, right ankle and foot (2) Nonhealing surgical wound: CODE(S): T81.89XA - Other complications of procedures, not elsewhere classified, initial encounter QUALIFIERS: Encounter type: initial encounter Qualified Code(s): T81.89XA - Other complications of procedures, not elsewhere classified, initial encounter (3) Osteomyelitis of ankle: CODE(S): M86.9 - Osteomyelitis, unspecified QUALIFIERS: Osteomyelitis type: subacute Laterality: right Qualified Code(s): M86.271 - Subacute osteomyelitis, right ankle and foot PLAN: Patient appears to be tolerating hyperbaric oxygen therapy well, which will be continued as per his medical plan. Cortisporin otic prescription given to use 4 gtts TID bilaterally. If worsening then advised him to see ENT.
--- NOTE | 2021-02-19 08:42 | PCM.HBO.PN ---
History of Present Illness Date of Service: 02/19/21 Chief Complaint: Chronic osteomyelitis of the right ankle; Non healing Post surgical wound of the right ankle. History of Wound: Mr. Stoner is a 20-year-old who presented to the wound center for HBO due to non healing post surgical wound and chronic osteomyelitis. Initial injury was in 2017 and has had several surgeries since then. Most recent surgery was in September 2020. Following which, surgical wound has not completely closed. History of osteomyelitis initially diagnosed in 2019 and during most recent surgery, nonviable bone excised. Had been following up closely with his surgeon. No known history of heart or lung disease. Developed right ear pain and had a Tympanostomy tube place 02/09/21. Left TM with no redness or discharge. Recently had Imaging and Blood work done which showed no concerns. Subjective Subjective Hyperbaric oxygen therapy was administered as per the facility's protocol. Today's session represents the 23rd session of a planned 30 such sessions. Hyperbaric oxygen therapy was administered at 2 katelyn for 90 minutes with no air breaks. The patient tolerated hyperbaric oxygen therapy well, without complaints or complications. Upon emergence from the hyperbaric chamber, the patient's vital signs remained stable. He was discharged in good condition. Objective Data Objective Data Vital Signs: Vital Signs Temp Pulse Resp BP 97.6 F L 78 16 132/67 H 02/16/21 09:14 02/16/21 09:14 02/16/21 09:14 02/16/21 09:14 Exam Physical Exam Const alert, oriented x3, no apparent distress and well nourished General Appearance: cooperative and well developed HEENT normocephalic Head and Scalp: atraumatic Tympanic Membrane: TM's normal bilaterally Resp normal respiratory effort Effort and Inspection: able to speak in complete sentences Auscultation: clear to auscultation bilaterally Cardio regular rate and regular rhythm Psych Appearance: grossly normal Assessment/Plan Assessment/Plan (1) Chronic osteomyelitis of right ankle: CODE(S): M86.671 - Other chronic osteomyelitis, right ankle and foot (2) Chronic osteomyelitis: CODE(S): M86.60 - Other chronic osteomyelitis, unspecified site (3) Edema of right lower leg: CODE(S): R60.0 - Localized edema (4) Nonhealing surgical wound: CODE(S): T81.89XA - Other complications of procedures, not elsewhere classified, initial encounter QUALIFIERS: Encounter type: initial encounter Qualified Code(s): T81.89XA - Other complications of procedures, not elsewhere classified, initial encounter (5) Osteomyelitis of ankle: CODE(S): M86.9 - Osteomyelitis, unspecified QUALIFIERS: Laterality: right Osteomyelitis type: subacute Qualified Code(s): M86.271 - Subacute osteomyelitis, right ankle and foot
[2021-02-19 08:51] VITALS: BP 135/75; BP 148/74; PULSE 66; PULSE 74; RESP 16; TEMP 36.4
[2021-02-20 08:43] VITALS: BP 126/76; BP 128/67; PULSE 69; PULSE 77; RESP 16; TEMP 36.5
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
[2021-02-21 08:31] VITALS: BP 125/69; BP 132/65; PULSE 70; PULSE 78; RESP 16; TEMP 36.6
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
[2021-02-22 08:27] VITALS: BP 132/73; BP 133/87; PULSE 63; PULSE 82; RESP 16; TEMP 36.2
[2021-02-22 10:23] VITALS: BP 132/73; PULSE 82; RESP 16; TEMP 36.2
--- NOTE | 2021-02-22 10:47 | PN.PCM_ITS ---
History of Present Illness Date of Service: 02/22/21 Chief Complaint: Chronic osteomyelitis of the right ankle; Non healing Post surgical wound of the right ankle. History of Wound: Mr. Stoner is a 20-year-old who presented to the wound center for HBO due to non healing post surgical wound and chronic osteomyelitis. Initial injury was in 2018 and has had several surgeries since then. Most recent surgery was in September 2020. Following which, surgical wound has not completely closed. History of osteomyelitis initially diagnosed in 2019 and during most recent surgery, nonviable bone excised. Had been following up closely with his surgeon. No known history of heart or lung disease. Developed right ear pain and had a Tympanostomy tube place 02/09/21. Left TM with no redness or discharge. Recently had Imaging and Blood work done which showed no concerns. Progress of Wound: Mr. Stoner is a 20-year-old who presented to the wound center for HBO due to non healing post surgical wound and chronic osteomyelitis. Initial injury was in 2018 and has had several surgeries since then. Most recent surgery was in September 2020. Following which, surgical wound has not completely closed. History of osteomyelitis initially diagnosed in 2019 and during most recent surgery, nonviable bone excised. Had been following up closely with his surgeon. No known history of heart or lung disease. Developed right ear pain and had a Tympanostomy tube place 02/08/21. Left TM with no redness or discharge. Recently had Imaging and Blood work done which showed no concerns. Subjective Subjective Improving. Has had 7 applications of Epifix. 26 sessions of HBO. Denies any concerns at this time. Objective Data Objective Data Vital Signs: Vital Signs Temp Pulse Resp BP 97.2 F L 82 16 132/73 H 02/22/21 10:23 02/22/21 10:23 02/22/21 10:23 02/22/21 10:23 Charges/Coding Procedures Integumentary 150xxx-152xx: [id number] Skin sub graft trnk/arm/leg Physical Exam Const alert, oriented x3, no apparent distress and well nourished General Appearance: cooperative and well developed HEENT normocephalic Head and Scalp: atraumatic Eyes PERRL and EOMs intact bilaterally Resp normal respiratory effort and no use of accessory muscles Effort and Inspection: able to speak in complete sentences Skin Wounds: wounds noted Psych Appearance: grossly normal Debridement Note Debridement Note Wound debrided: Left lower extremity Type of Debridement: Excisional debridement Anesthesia Used: 4% Lidocaine Solution Depth: Down to and including healthy tissue and in the subcutaneous layer Percentage of wound debrided: 100 Instrument Used: 3mm curette Tissue Removed: Slough and devitalized tissue Severity: Fat Layer Exposed Amount of bleeding with debridement: Mild Bleeding Controlled with: Pressure Patient tolerated procedure: Patient tolerated procedure well Post-Debridement Measurements and Additional Note: Post-Debridement Measurements/Treatment - Nurse 1 - General Ulcer Assessment Start: 01/31/21 08:54 Freq: Status: Active Protocol: BOBT Activity Type Activity Date Activity User E-Sign Co-Sign Detail Recorded Client Recorded Date Recorded By Document 02/01/21 10:32 ML [id number] 02/01/21 10:33 ML Document 02/15/21 11:05 ML [id number] 02/15/21 11:08 ML Document 02/22/21 10:23 DL [id number] 02/22/21 10:26 DL 02/01/21 02/15/21 02/22/21 10:32 11:05 10:23 - Today's Visit Information Type of service Follow-up Visit Follow-up Visit Follow-up Visit (Physician/SENIOR STAFF CONSULTANT (Physician/SENIOR STAFF CONSULTANT (Physician/SENIOR STAFF CONSULTANT ) ) ) Arrival Mode Ambulatory Ambulatory Ambulatory Transfer Assistance None None Patient Identification Verified (Name & Yes Yes Yes ) Patient Requires Transmission-Based No No No Precautions Safety Precautions NA NA Vital Signs Temperature (97.8 F-99.1 F) 97.5 F L 97.9 F 97.2 F L Temperature Source Temporal Temporal Temporal Pulse Rate (60-100) 78 81 82 Pulse Location Monitor Monitor Monitor Respiratory Rate (12-18) 16 16 16 Respiratory rate source Observation Monitor Observation Blood Pressure (90/60-120/80) 115/63 119/69 132/73 H Blood Pressure Mean (mm Hg) 80 85 92 Source Monitor Manual Monitor Position Sitting Sitting Blood Pressure Location Right Arm Left Arm History Since Last Visit- (Skip if this is Patient's initial visit) Have you changed medications since your No No No last visit? Any new allergies or adverse reactions No No No Had a fall/change in ADL's that may No No No increase risk of falls Signs or symptoms of abuse and/or No No No neglect since last visit Have you been in the hospital since your No No No last visit? Has dressing in place as prescribed No Yes Yes Has compression in place as prescribed N/A No Yes Has offloadiing in place as prescribed N/A N/A Yes Experienced any changes in pain level or No No No management Left Footwear Regular Shoe Regular Shoe Right Footwear Regular Shoe Regular Shoe Pain Scale: 0-10 Numeric Is Patient Pain Free? Yes No Yes WC - Nurse 1 - General Ulcer Measurement Start: 01/31/21 08:54 Freq: Status: Active Protocol: Activity Type Activity Date Activity User E-Sign Co-Sign Detail Recorded Client Recorded Date Recorded By Document 02/01/21 10:32 ML [id number] 02/01/21 10:33 ML Document 02/15/21 11:05 ML [id number] 02/15/21 11:08 ML Document 02/22/21 10:23 DL [id number] 02/22/21 10:26 DL 02/01/21 02/15/21 02/22/21 10:32 11:05 10:23 Wound Center Nurse 1 #1 right medial ankle -Current Size (cm) - Length 1.5 0.8 0.2 -Current Size (cm) - Width 0.8 0.3 0.2 -Current Size (cm) - Depth 0.4 0.2 0.2 -Total Square Cm 1.20 0.24 0.04 -Photo Taken No -Exudate Amt Medium Medium Small -Exudate Type Serosanguineous Serosanguineous Serosanguineous -Wound Margin Distinct, Distinct, Thickened Outline Outline Attached Attached -Granulation Amt Medium (34-66%) Medium (34-66%) Small (1-33%) -Granulation Quality Pale [place] -Slough/Fibrin Yes Yes -Necrosis Amt Medium (34-66%) Medium (34-66%) Large (67-100%) -Necrotic Tissue Type Adherent Slough Adherent Slough -Structure Exposed Tendon,N/A -Texture (Radha-wound Skin Appearance) Assessed Assessed Scarring -Moisture (Radha-wound Skin Appearance) Assessed Assessed Dry/Scaly -Color (Radha-wound Skin Appearance) Assessed Assessed No Abnormality -Temperature (Radha-wound Skin No Abnormality No Abnormality No Abnormality Appearance) (Pt Warm) (Pt Warm) (Pt Warm) -Tenderness on Palpation (Radha-wound No No No Skin Appearance) -Ulcer Cleansing Wound Cleanser Wound Cleanser Wound Cleanser -Foul Odor after Cleansing No No -Anesthetic Used 4% Lidocaine 4% Lidocaine 5% Lidocaine Solution Solution Gel Right Calf (cm) 37.5 Right Ankle (cm) 29.5 WC - Nurse 2 - General Ulcer CM Notes Start: 01/31/21 08:54 Freq: Status: Active Protocol: Activity Type Activity Date Activity User E-Sign Co-Sign Detail Recorded Client Recorded Date Recorded By Document 02/01/21 11:06 MT [id number] 02/01/21 11:13 MT Document 02/08/21 10:41 MT [id number] 02/08/21 10:47 MT Document 02/15/21 11:13 MW [id number] 02/15/21 11:20 MW Document 02/22/21 10:41 MW [id number] 02/22/21 10:43 MW 02/01/21 02/08/21 02/15/21 11:06 10:41 11:13 Wound Center Nurse 2 #1 right medial ankle -Time 11:06 10:42 11:13 -Correct Patient Yes Yes Yes -Correct Side, Site, Position Yes Yes Yes -Correct Procedure Yes Yes Yes -Procedure Performed Yes Yes Yes -Type of Procedure Debridement Debridement Debridement -Clinical Debridement Subcutaneous Subcutaneous Subcutaneous -Tissue Removed Subcutaneous Subcutaneous Subcutaneous -Post Debridement (cm) - Length 2.4 2.1 1.5 -Post Debridement (cm) - Width 0.7 0.5 0.6 -Post Debridement (cm) - Depth 0.4 0.4 0.3 -Total Square (Post) (cm) 1.68 1.05 0.90 -Area of Debridement (cm) - Length 2.4 2.1 1.5 -Area of Debridement (cm) - Width 0.7 0.5 0.6 -Total Square (Area) (cm) 1.68 1.05 0.90 -Tunneling No No No -Undermining/Tunneling No No No -Circular Undermining No No No -Wound/Ulcer Outcome Not Healed Not Healed Not Healed -Ulcer Cleansing Rinsed/ Rinsed/ Rinsed/ Irrigated with Irrigated with Irrigated with Saline Saline Saline -Foul Odor after Cleansing No No No -Bioengineered Tissue Yes Yes Yes -Type of Bioengineered Tissue Epifix Epifix Epifix -Expiration Date 06/05/25 09/30/25 09/30/25 -Product Lot Number [id number] -Percent Used 100 100 100 -Lot number of Saline Used [id number] -Bleeding Controlled with Pressure Pressure Pressure -Offloading No No No -Treatment Response Procedure Procedure Procedure Tolerated Well Tolerated Well Tolerated Well -Debridement - Subq, 1st 20sq cm No No No -Apply Skin Sub - 1st 25 sq cm - Legs 1 1 1 -Epifix (per sq cm) 4 4 4 -Epifix 18mm Disc Pain Scale: 0-10 Numeric Is Patient Pain Free? Yes 02/22/21 10:41 Wound Center Nurse 2 #1 right medial ankle -Time 10:41 -Correct Patient Yes -Correct Side, Site, Position Yes -Correct Procedure Yes -Procedure Performed Yes -Type of Procedure Debridement -Clinical Debridement Subcutaneous -Tissue Removed Subcutaneous -Post Debridement (cm) - Length 1.1 -Post Debridement (cm) - Width 0.4 -Post Debridement (cm) - Depth 0.2 -Total Square (Post) (cm) 0.44 -Area of Debridement (cm) - Length 1.1 -Area of Debridement (cm) - Width 0.4 -Total Square (Area) (cm) 0.44 -Tunneling No -Undermining/Tunneling No -Circular Undermining No -Wound/Ulcer Outcome Not Healed -Ulcer Cleansing Rinsed/ Irrigated with Saline -Foul Odor after Cleansing No -Bioengineered Tissue Yes -Type of Bioengineered Tissue Epifix 18mm Disc -Expiration Date 10/31/25 -Product Lot Number [id number] -Percent Used 100 -Lot number of Saline Used [id number] -Bleeding Controlled with Pressure -Offloading No -Treatment Response Procedure Tolerated Well -Debridement - Subq, 1st 20sq cm No -Apply Skin Sub - 1st 25 sq cm - Legs 1 -Epifix (per sq cm) -Epifix 18mm Disc 3 Pain Scale: 0-10 Numeric Is Patient Pain Free? Yes - Nurse 3 - General Ulcer D/C NN Start: 01/31/21 08:54 Freq: Status: Active Protocol: Activity Type Activity Date Activity User E-Sign Co-Sign Detail Recorded Client Recorded Date Recorded By Document 02/08/21 10:53 ML [id number] 02/08/21 10:54 ML Document 02/15/21 11:26 AK [id number] 02/15/21 11:26 AK Document 02/22/21 10:43 MW [id number] 02/22/21 10:44 MW 02/08/21 02/15/21 02/22/21 10:53 11:26 10:43 Wound Care Nurse 3 #1 right medial ankle -Ulcer Cleansing Not Cleansed Rinsed/ Not Cleansed Irrigated with Saline -Foul Odor after Cleansing No No -Negative Pressure Wound Therapy N/A -Primary Dressing Covered/Secured with Dry Gauze & Dry Gauze & Dry Gauze & Roll Gauze, Roll Gauze, Roll Gauze, Secured with Secured with Secured with Tape Tape Tape Treatment Response Procedure Tolerated Well Pain Scale: 0-10 Numeric Is Patient Pain Free? Yes Yes Teaching: Wound Center Dressing Your Wound -Person Taught Patient -Teaching Method Discussion, Demonstration -Response to teaching Verbalize understanding WC - Visit Discharge Discharge Condition Stable Stable Stable Ambulatory Status Ambulatory Ambulatory Ambulatory Transportation Private Auto Private Auto Private Auto Accompanied by SELF Medication Reconcilliation completed & No No No provided to patient/care provider Clinical Summary of Care Provided Yes Yes Yes Assessment/Plan Assessment/Plan (1) Nonhealing surgical wound: CODE(S): T81.89XA - Other complications of procedures, not elsewhere classified, initial encounter QUALIFIERS: Encounter type: initial encounter Qualified Code(s): T81.89XA - Other complications of procedures, not elsewhere classified, initial encounter (2) Osteomyelitis of ankle: CODE(S): M86.9 - Osteomyelitis, unspecified QUALIFIERS: Laterality: right Osteomyelitis type: subacute Qualified Code(s): M86.271 - Subacute osteomyelitis, right ankle and foot (3) Edema of right lower leg: CODE(S): R60.0 - Localized edema PLAN: Improving. Debridement done as documented above, procedure was well-tolerated. 8th application of Epifix done today using 100% of product. Moistened with saline, Adaptic touch over top. Secured with Steri-Strips. Leave in place for a week. Elevate lower extremities when seated and in bed. Continue compression. Increase protein intake, Zinc, vitamin C and D. His questions were answered and he was advised to call with any further questions or concerns. Follow up in a week. This note was generated with V[employer]ation software. It may contain incorrect words, spelling, and punctuation that were not noted in checking the note before signing.
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
[2021-02-23 08:13] VITALS: BP 125/70; BP 132/70; PULSE 67; PULSE 78; RESP 16; TEMP 36.7
--- NOTE | 2021-02-23 14:10 | HBO.PN.PCM_ITS ---
History of Present Illness Date of Service: 02/23/21 Chief Complaint: Chronic osteomyelitis of the right ankle; Non healing Post surgical wound of the right ankle. History of Wound: Mr. Stoner is a 20-year-old who presented to the wound center for HBO due to non healing post surgical wound and chronic osteomyelitis. Initial injury was in 2017 and has had several surgeries since then. Most recent surgery was in September 2020. Following which, surgical wound has not completely closed. History of osteomyelitis initially diagnosed in 2019 and during most recent surgery, nonviable bone excised. Had been following up closely with his surgeon. No known history of heart or lung disease. Developed right ear pain and had a Tympanostomy tube place 02/09/21. Left TM with no redness or discharge. Recently had Imaging and Blood work done which showed no concerns. Progress of Wound: Has had 27 sessions of hyperbaric oxygen for chronic osteomyelitis of right ankle and nonhealing postsurgical wound of right ankle. He has tolerated his sessions well. Wound is improving. Subjective Subjective Hyperbaric oxygen therapy was administered as per the facility's for protocol. Today's session represents the 27th session of a planned 30 such sessions. Hyperbaric oxygen therapy was administered at 2 katelyn for 90 minutes with no air breaks. Patient tolerated hyperbaric oxygen therapy well, without complaints or complications. Upon emergence from the hyperbaric chamber, the patient's vital signs remained stable. He was discharged in good condition. Objective Data Objective Data Vital Signs: Vital Signs Temp Pulse Resp BP 98.0 F 78 16 132/70 H 02/23/21 08:13 02/23/21 08:13 02/23/21 08:13 02/23/21 08:13 Exam Physical Exam Const alert, oriented x3 and no apparent distress General Appearance: cooperative, comfortable and well developed HEENT normocephalic, head/scalp atraumatic and EAC's normal HEENT Narrative: Right TM with tympanostomy tube present and patent Psych mental status grossly normal, thought process normal, cooperative, affect normal and speech normal Nursing Assessment and Debridement Post-Debridement Measurements and Additional Note: Post-Debridement Measu rements/Treatment EVARISTO - Nurse 1 - General Ulcer Assessment Start: 01/31/21 08:54 Freq: Status: Active Protocol: FAIZAN Activity Type Activity Date Activity User E-Sign Co-Sign Detail Recorded Client Recorded Date Recorded By Document 02/22/21 10:23 [id number] 02/22/21 10:26 02/22/21 10:23 WC - Today's Visit Information Type of service Follow-up Visit (Physician/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 Any new allergies or adverse reactions No Had a fall/change in ADL's that may No increase risk of falls Signs or symptoms of abuse and/or No neglect since last visit Have you been in the hospital since your No last visit? Has dressing in place as prescribed Yes Has compression in place as prescribed Yes Has offloadiing in place as prescribed Yes Experienced any changes in pain level or No management Pain Scale: 0-10 Numeric Is Patient Pain Free? Yes - Nurse 1 - General Ulcer Measurement Start: 01/31/21 08:54 Freq: Status: Active Protocol: Activity Type Activity Date Activity User E-Sign Co-Sign Detail Recorded Client Recorded Date Recorded By Document 02/22/21 10:23 DL [id number] 02/22/21 10:26 02/22/21 10:23 Wound Center Nurse 1 #1 right medial ankle -Current Size (cm) - Length 0.2 -Current Size (cm) - Width 0.2 -Current Size (cm) - Depth 0.2 -Total Square Cm 0.04 -Photo Taken No -Exudate Amt Small -Exudate Type Serosanguineous -Wound Margin Thickened -Granulation Amt Small (1-33%) -Granulation [facility] -Necrosis Amt Large (67-100%) -Structure Exposed Tendon,N/A -Texture (Radha-wound Skin Appearance) Scarring -Moisture (Radha-wound Skin Appearance) Dry/Scaly -Color (Radha-wound Skin Appearance) No Abnormality -Temperature (Radha-wound Skin No Abnormality Appearance) (Pt Warm) -Tenderness on Palpation (Radha-wound No Skin Appearance) -Ulcer Cleansing Wound Cleanser -Foul Odor after Cleansing No -Anesthetic Used 5% Lidocaine Gel Right Calf (cm) 37.5 Right Ankle (cm) 29.5 WC - Nurse 2 - General Ulcer CM Notes Start: 01/31/21 08:54 Freq: Status: Active Protocol: Activity Type Activity Date Activity User E-Sign Co-Sign Detail Recorded Client Recorded Date Recorded By Document 02/22/21 10:41 MW [id number] 02/22/21 10:43 MW 02/22/21 10:41 Wound Center Nurse 2 #1 right medial ankle -Time 10:41 -Correct Patient Yes -Correct Side, Site, Position Yes -Correct Procedure Yes -Procedure Performed Yes -Type of Procedure Debridement -Clinical Debridement Subcutaneous -Tissue Removed Subcutaneous -Post Debridement (cm) - Length 1.1 -Post Debridement (cm) - Width 0.4 -Post Debridement (cm) - Depth 0.2 -Total Square (Post) (cm) 0.44 -Area of Debridement (cm) - Length 1.1 -Area of Debridement (cm) - Width 0.4 -Total Square (Area) (cm) 0.44 -Tunneling No -Undermining/Tunneling No -Circular Undermining No -Wound/Ulcer Outcome Not Healed -Ulcer Cleansing Rinsed/ Irrigated with Saline -Foul Odor after Cleansing No -Bioengineered Tissue Yes -Type of Bioengineered Tissue Epifix 18mm Disc -Expiration Date 10/31/25 -Product Lot Number [id number] -Percent Used 100 -Lot number of Saline Used [id number] -Bleeding Controlled with Pressure -Offloading No -Treatment Response Procedure Tolerated Well -Debridement - Subq, 1st 20sq cm No -Apply Skin Sub - 1st 25 sq cm - Legs 1 -Epifix 18mm Disc 3 Pain Scale: 0-10 Numeric Is Patient Pain Free? Yes WC - Nurse 3 - General Ulcer D/C NN Start: 01/31/21 08:54 Freq: Status: Active Protocol: Activity Type Activity Date Activity User E-Sign Co-Sign Detail Recorded Client Recorded Date Recorded By Document 02/22/21 10:43 MW [id number] 02/22/21 10:44 MW 02/22/21 10:43 Wound Care Nurse 3 #1 right medial ankle -Ulcer Cleansing Not Cleansed -Primary Dressing Covered/Secured with Dry Gauze & Roll Gauze, Secured with Tape Treatment Response Procedure Tolerated Well Pain Scale: 0-10 Numeric Is Patient Pain Free? Yes Teaching: Wound Center Dressing Your Wound -Person Taught Patient -Teaching Method Discussion, Demonstration -Response to teaching Verbalize understanding WC - Visit Discharge Discharge Condition Stable Ambulatory Status Ambulatory Transportation Private Auto Accompanied by SELF Medication Reconcilliation completed & No provided to patient/care provider Clinical Summary of Care Provided Yes Assessment/Plan Assessment/Plan (1) Chronic osteomyelitis of right ankle: CODE(S): M86.671 - Other chronic osteomyelitis, right ankle and foot (2) Nonhealing surgical wound: CODE(S): T81.89XA - Other complications of procedures, not elsewhere classified, initial encounter QUALIFIERS: Encounter type: initial encounter Qualified Code(s): T81.89XA - Other complications of procedures, not elsewhere classified, initial encounter (3) Osteomyelitis of ankle: CODE(S): M86.9 - Osteomyelitis, unspecified QUALIFIERS: Osteomyelitis type: subacute Laterality: right Qualified Code(s): M86.271 - Subacute osteomyelitis, right ankle and foot PLAN: Patient appears to be tolerating hyperbaric oxygen therapy well, which will be continued as per his medical plan.
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
[2021-02-26 08:38] VITALS: BP 130/60; BP 135/72; PULSE 64; PULSE 88; RESP 16; TEMP 36.6
[2021-02-27 09:30] VITALS: BP 121/82; BP 131/75; PULSE 64; PULSE 88; RESP 16; TEMP 36.6
--- NOTE | 2021-02-27 10:28 | PCM.HBO.PN ---
History of Present Illness Date of Service: 02/27/21 Chief Complaint: Chronic osteomyelitis of the right ankle; Non healing Post surgical wound of the right ankle. History of Wound: Mr. Stoner is a 20-year-old who presented to the wound center for HBO due to non healing post surgical wound and chronic osteomyelitis. Initial injury was in 2017 and has had several surgeries since then. Most recent surgery was in September 2020. Following which, surgical wound has not completely closed. History of osteomyelitis initially diagnosed in 2019 and during most recent surgery, nonviable bone excised. Had been following up closely with his surgeon. No known history of heart or lung disease. Developed right ear pain and had a Tympanostomy tube place 02/09/21. Left TM with no redness or discharge. Recently had Imaging and Blood work done which showed no concerns. Progress of Wound: Has had 28 sessions of hyperbaric oxygen for chronic osteomyelitis of right ankle and nonhealing postsurgical wound of right ankle. He has tolerated his sessions well. Wound is improving. Subjective Subjective Hyperbaric oxygen therapy was administered as per the facility's protocol. Today's session represents the 29th session of a planned 30 such sessions. Hyperbaric oxygen therapy was administered at 2 katelyn for 90 minutes with no air breaks. Patient tolerated hyperbaric oxygen therapy well, without complaints or complications. Upon emergence from the hyperbaric chamber, the patient's vital signs remained stable. The patient was discharged in good condition. Objective Data Objective Data Vital Signs: Vital Signs Temp Pulse Resp BP 97.9 F 88 16 131/75 H 02/27/21 09:30 02/27/21 09:30 02/27/21 09:30 02/27/21 09:30 Exam Physical Exam Const alert, oriented x3, no apparent distress and well nourished General Appearance: cooperative and well developed HEENT normocephalic and EAC's normal Head and Scalp: atraumatic Eyes PERRL and EOMs intact bilaterally Neck no JVD Resp normal respiratory effort and no use of accessory muscles Effort and Inspection: able to speak in complete sentences Psych affect normal Appearance: grossly normal and well kempt Assessment/Plan Assessment/Plan (1) Chronic osteomyelitis of right ankle: CODE(S): M86.671 - Other chronic osteomyelitis, right ankle and foot (2) Chronic osteomyelitis: CODE(S): M86.60 - Other chronic osteomyelitis, unspecified site (3) Nonhealing surgical wound: CODE(S): T81.89XA - Other complications of procedures, not elsewhere classified, initial encounter QUALIFIERS: Encounter type: initial encounter Qualified Code(s): T81.89XA - Other complications of procedures, not elsewhere classified, initial encounter (4) Osteomyelitis of ankle: CODE(S): M86.9 - Osteomyelitis, unspecified QUALIFIERS: Osteomyelitis type: subacute Laterality: right Qualified Code(s): M86.271 - Subacute osteomyelitis, right ankle and foot PLAN: The patient appears to be tolerating hyperbaric oxygen therapy well, which will be continued as per the patient's medical plan.
[2021-02-28 09:10] VITALS: BP 125/75; BP 138/75; PULSE 65; PULSE 77; RESP 16; TEMP 36.2
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
[2021-03-01 10:04] VITALS: BP 128/70; BP 139/78; PULSE 71; PULSE 95; RESP 16; TEMP 36.6
[2021-03-01 11:25] VITALS: BP 128/70; PULSE 71; RESP 16; TEMP 36.6
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
--- NOTE | 2021-03-01 13:31 | PN.PCM_ITS ---
History of Present Illness Date of Service: 03/01/21 Chief Complaint: Chronic osteomyelitis of the right ankle; Non healing Post surgical wound of the right ankle. History of Wound: Mr. Stoner is a 20-year-old who presented to the wound center for HBO due to non healing post surgical wound and chronic osteomyelitis. Initial injury was in 2017 and has had several surgeries since then. Most recent surgery was in September 2020. Following which, surgical wound has not completely closed. History of osteomyelitis initially diagnosed in 2019 and during most recent surgery, nonviable bone excised. Had been following up closely with his surgeon. No known history of heart or lung disease. Developed right ear pain and had a Tympanostomy tube place 02/09/21. Left TM with no redness or discharge. Recently had Imaging and Blood work done which showed no concerns. Progress of Wound: Has had 30 sessions of hyperbaric oxygen for chronic osteomyelitis of right ankle and nonhealing postsurgical wound of right ankle. He has tolerated his sessions well. Wound is improving. Subjective Subjective Improving. Has had 8 applications of Epifix. Objective Data Objective Data Vital Signs: Vital Signs Temp Pulse Resp BP 97.8 F 71 16 128/70 H 03/01/21 11:25 03/01/21 11:25 03/01/21 11:25 03/01/21 11:25 Charges/Coding Procedures Integumentary [id number]: [id number] Skin sub graft trnk/arm/leg Physical Exam Const alert, oriented x3, no apparent distress and well nourished General Appearance: cooperative and well developed HEENT normocephalic Head and Scalp: atraumatic Tympanic Membrane: TM's normal bilaterally Resp normal respiratory effort Effort and Inspection: able to speak in complete sentences Auscultation: clear to auscultation bilaterally Cardio regular rate and regular rhythm Psych Appearance: grossly normal Debridement Note Debridement Note Wound debrided: Right lower extremity Type of Debridement: Excisional debridement Anesthesia Used: 4% Lidocaine Solution Depth: Down to and including healthy tissue and in the subcutaneous layer Percentage of wound debrided: 100 Instrument Used: 3mm curette Tissue Removed: Slough and devitalized tissue Severity: Fat Layer Exposed Amount of bleeding with debridement: Mild Bleeding Controlled with: Pressure Patient tolerated procedure: Patient tolerated procedure well Post-Debridement Measurements and Additional Note: Post-Debridement Measurements/Treatment WC - Nurse 1 - General Ulcer Assessment Start: 01/31/21 08:54 Freq: Status: Active Protocol: WC.LOWEXT Activity Type Activity Date Activity User E-Sign Co-Sign Detail Recorded Client Recorded Date Recorded By Document 02/01/21 10:32 ML [id number] 02/01/21 10:33 ML Document 02/15/21 11:05 ML [id number] 02/15/21 11:08 ML Document 02/22/21 10:23 DL [id number] 02/22/21 10:26 DL Document 03/01/21 11:25 ML [id number] 03/01/21 11:27 ML 02/01/21 02/15/21 02/22/21 10:32 11:05 10:23 WC - Today's Visit Information Type of service Follow-up Visit Follow-up Visit Follow-up Visit (Physician/TECHNICAL SOURCING RECRUITER (Physician/TECHNICAL SOURCING RECRUITER (Physician/TECHNICAL SOURCING RECRUITER ) ) ) Arrival Mode Ambulatory Ambulatory Ambulatory Transfer Assistance None None Patient Identification Verified (Name & Yes Yes Yes ) Patient Requires Transmission-Based No No No Precautions Safety Precautions NA NA Vital Signs Temperature (97.8 F-99.1 F) 97.5 F L 97.9 F 97.2 F L Temperature Source Temporal Temporal Temporal Pulse Rate (60-100) 78 81 82 Pulse Location Monitor Monitor Monitor Respiratory Rate (12-18) 16 16 16 Respiratory rate source Observation Monitor Observation Blood Pressure (90/60-120/80) 115/63 119/69 132/73 H Blood Pressure Mean (mm Hg) 80 85 92 Source Monitor Manual Monitor Position Sitting Sitting Blood Pressure Location Right Arm Left Arm History Since Last Visit- (Skip if this is Patient's initial visit) Have you changed medications since your No No No last visit? Any new allergies or adverse reactions No No No Had a fall/change in ADL's that may No No No increase risk of falls Signs or symptoms of abuse and/or No No No neglect since last visit Have you been in the hospital since your No No No last visit? Has dressing in place as prescribed No Yes Yes Has compression in place as prescribed N/A No Yes Has offloadiing in place as prescribed N/A N/A Yes Experienced any changes in pain level or No No No management Left Footwear Regular Shoe Regular Shoe Right Footwear Regular Shoe Regular Shoe Pain Scale: 0-10 Numeric Is Patient Pain Free? Yes No Yes 03/01/21 11:25 - Today's Visit Information Type of service Follow-up Visit (Physician/TECHNICAL SOURCING RECRUITER ) Arrival Mode Ambulatory Transfer Assistance None Patient Identification Verified (Name & Yes ) Patient Requires Transmission-Based No Precautions Safety Precautions NA Vital Signs Temperature (97.8 F-99.1 F) 97.8 F Temperature Source Temporal Pulse Rate (60-100) 71 Pulse Location Monitor Respiratory Rate (12-18) 16 Respiratory rate source Monitor Blood Pressure (90/60-120/80) 128/70 H Blood Pressure Mean (mm Hg) 89 Source Monitor Position Sitting Blood Pressure Location Left Arm History Since Last Visit- (Skip if this is Patient's initial visit) Have you changed medications since your No last visit? Any new allergies or adverse reactions No Had a fall/change in ADL's that may No increase risk of falls Signs or symptoms of abuse and/or No neglect since last visit Have you been in the hospital since your No last visit? Has dressing in place as prescribed Yes Has compression in place as prescribed No Has offloadiing in place as prescribed N/A Experienced any changes in pain level or No management Left Footwear Regular Shoe Right Footwear Regular Shoe Pain Scale: 0-10 Numeric Is Patient Pain Free? Yes - Nurse 1 - General Ulcer Measurement Start: 01/31/21 08:54 Freq: Status: Active Protocol: Activity Type Activity Date Activity User E-Sign Co-Sign Detail Recorded Client Recorded Date Recorded By Document 02/01/21 10:32 ML [id number] 02/01/21 10:33 ML Document 02/15/21 11:05 ML [id number] 02/15/21 11:08 ML Document 02/22/21 10:23 DL [id number] 02/22/21 10:26 DL Document 03/01/21 11:27 ML [id number] 03/01/21 11:28 ML 02/01/21 02/15/21 02/22/21 10:32 11:05 10:23 Wound Center Nurse 1 #1 right medial ankle -Current Size (cm) - Length 1.5 0.8 0.2 -Current Size (cm) - Width 0.8 0.3 0.2 -Current Size (cm) - Depth 0.4 0.2 0.2 -Total Square Cm 1.20 0.24 0.04 -Photo Taken No -Exudate Amt Medium Medium Small -Exudate Type Serosanguineous Serosanguineous Serosanguineous -Wound Margin Distinct, Distinct, Thickened Outline Outline Attached Attached -Granulation Amt Medium (34-66%) Medium (34-66%) Small (1-33%) -Granulation Quality Pale [place] -Slough/Fibrin Yes Yes -Necrosis Amt Medium (34-66%) Medium (34-66%) Large (67-100%) -Necrotic Tissue Type Adherent Slough Adherent Slough -Structure Exposed Tendon,N/A -Texture (Radha-wound Skin Appearance) Assessed Assessed Scarring -Moisture (Radha-wound Skin Appearance) Assessed Assessed Dry/Scaly -Color (Radha-wound Skin Appearance) Assessed Assessed No Abnormality -Temperature (Radha-wound Skin No Abnormality No Abnormality No Abnormality Appearance) (Pt Warm) (Pt Warm) (Pt Warm) -Tenderness on Palpation (Radha-wound No No No Skin Appearance) -Ulcer Cleansing Wound Cleanser Wound Cleanser Wound Cleanser -Foul Odor after Cleansing No No -Anesthetic Used 4% Lidocaine 4% Lidocaine 5% Lidocaine Solution Solution Gel Right Calf (cm) 37.5 Right Ankle (cm) 29.5 03/01/21 11:27 Wound Center Nurse 1 #1 right medial ankle -Current Size (cm) - Length 0.1 -Current Size (cm) - Width 0.1 -Current Size (cm) - Depth 0.1 -Total Square Cm 0.01 -Photo Taken -Exudate Amt Small -Exudate Type Serosanguineous -Wound Margin Distinct, Outline Attached -Granulation Amt Small (1-33%) -Granulation Quality Pale -Slough/Fibrin Yes -Necrosis Amt Small (1-33%) -Necrotic Tissue Type Adherent Slough -Structure Exposed -Texture (Radha-wound Skin Appearance) Assessed -Moisture (Radha-wound Skin Appearance) Assessed -Color (Radha-wound Skin Appearance) Assessed -Temperature (Radha-wound Skin No Abnormality Appearance) (Pt Warm) -Tenderness on Palpation (Radha-wound No Skin Appearance) -Ulcer Cleansing Rinsed/ Irrigated with Saline -Foul Odor after Cleansing No -Anesthetic Used 4% Lidocaine Solution Right Calf (cm) Right Ankle (cm) WC - Nurse 2 - General Ulcer CM Notes Start: 01/31/21 08:54 Freq: Status: Active Protocol: Activity Type Activity Date Activity User E-Sign Co-Sign Detail Recorded Client Recorded Date Recorded By Document 02/01/21 11:06 MT [id number] 02/01/21 11:13 MT Document 02/08/21 10:41 MT [id number] 02/08/21 10:47 MT Document 02/15/21 11:13 MW [id number] 02/15/21 11:20 MW Document 02/22/21 10:41 MW [id number] 02/22/21 10:43 MW Document 03/01/21 11:50 MW [id number] 03/01/21 11:57 MW 02/01/21 02/08/21 02/15/21 11:06 10:41 11:13 Wound Center Nurse 2 #1 right medial ankle -Time 11:06 10:42 11:13 -Correct Patient Yes Yes Yes -Correct Side, Site, Position Yes Yes Yes -Correct Procedure Yes Yes Yes -Procedure Performed Yes Yes Yes -Type of Procedure Debridement Debridement Debridement -Clinical Debridement Subcutaneous Subcutaneous Subcutaneous -Tissue Removed Subcutaneous Subcutaneous Subcutaneous -Post Debridement (cm) - Length 2.4 2.1 1.5 -Post Debridement (cm) - Width 0.7 0.5 0.6 -Post Debridement (cm) - Depth 0.4 0.4 0.3 -Total Square (Post) (cm) 1.68 1.05 0.90 -Area of Debridement (cm) - Length 2.4 2.1 1.5 -Area of Debridement (cm) - Width 0.7 0.5 0.6 -Total Square (Area) (cm) 1.68 1.05 0.90 -Tunneling No No No -Undermining/Tunneling No No No -Circular Undermining No No No -Wound/Ulcer Outcome Not Healed Not Healed Not Healed -Ulcer Cleansing Rinsed/ Rinsed/ Rinsed/ Irrigated with Irrigated with Irrigated with Saline Saline Saline -Foul Odor after Cleansing No No No -Bioengineered Tissue Yes Yes Yes -Type of Bioengineered Tissue Epifix Epifix Epifix -Expiration Date 06/05/25 09/30/25 09/30/25 -Product Lot Number [id number] -Percent Used 100 100 100 -Lot number of Saline Used [id number] -Bleeding Controlled with Pressure Pressure Pressure -Offloading No No No -Treatment Response Procedure Procedure Procedure Tolerated Well Tolerated Well Tolerated Well -Debridement - Subq, 1st 20sq cm No No No -Apply Skin Sub - 1st 25 sq cm - Legs 1 1 1 -Epifix (per sq cm) 4 4 4 -Epifix 18mm Disc Pain Scale: 0-10 Numeric Is Patient Pain Free? Yes 02/22/21 03/01/21 10:41 11:50 Wound Center Nurse 2 #1 right medial ankle -Time 10:41 11:50 -Correct Patient Yes Yes -Correct Side, Site, Position Yes Yes -Correct Procedure Yes Yes -Procedure Performed Yes Yes -Type of Procedure Debridement Debridement -Clinical Debridement Subcutaneous Subcutaneous -Tissue Removed Subcutaneous Subcutaneous -Post Debridement (cm) - Length 1.1 1.5 -Post Debridement (cm) - Width 0.4 0.3 -Post Debridement (cm) - Depth 0.2 0.1 -Total Square (Post) (cm) 0.44 0.45 -Area of Debridement (cm) - Length 1.1 1.5 -Area of Debridement (cm) - Width 0.4 0.3 -Total Square (Area) (cm) 0.44 0.45 -Tunneling No No -Undermining/Tunneling No No -Circular Undermining No No -Wound/Ulcer Outcome Not Healed Not Healed -Ulcer Cleansing Rinsed/ Rinsed/ Irrigated with Irrigated with Saline Saline -Foul Odor after Cleansing No No -Bioengineered Tissue Yes Yes -Type of Bioengineered Tissue Epifix 18mm Epifix 18mm Disc Disc -Expiration Date 10/31/25 10/31/25 -Product Lot Number [id number] -Percent Used 100 100 -Lot number of Saline Used [id number] -Bleeding Controlled with Pressure Pressure -Offloading No No -Treatment Response Procedure Procedure Tolerated Well Tolerated Well -Debridement - Subq, 1st 20sq cm No No -Apply Skin Sub - 1st 25 sq cm - Legs 1 1 -Epifix (per sq cm) -Epifix 18mm Disc 3 3 Pain Scale: 0-10 Numeric Is Patient Pain Free? Yes Yes WC - Nurse 3 - General Ulcer D/C NN Start: 01/31/21 08:54 Freq: Status: Active Protocol: Activity Type Activity Date Activity User E-Sign Co-Sign Detail Recorded Client Recorded Date Recorded By Document 02/08/21 10:53 ML [id number] 02/08/21 10:54 ML Document 02/15/21 11:26 AK [id number] 02/15/21 11:26 AK Document 02/22/21 10:43 MW [id number] 02/22/21 10:44 MW Document 03/01/21 12:09 DL [id number] 03/01/21 12:10 DL 02/08/21 02/15/21 02/22/21 10:53 11:26 10:43 Wound Care Nurse 3 #1 right medial ankle -Ulcer Cleansing Not Cleansed Rinsed/ Not Cleansed Irrigated with Saline -Foul Odor after Cleansing No No -Negative Pressure Wound Therapy N/A -Other Dressing -Primary Dressing Covered/Secured with Dry Gauze & Dry Gauze & Dry Gauze & Roll Gauze, Roll Gauze, Roll Gauze, Secured with Secured with Secured with Tape Tape Tape Treatment Response Procedure Tolerated Well Pain Scale: 0-10 Numeric Is Patient Pain Free? Yes Yes Teaching: Wound Center Dressing Your Wound -Person Taught Patient -Teaching Method Discussion, Demonstration -Response to teaching Verbalize understanding WC - Visit Discharge Discharge Condition Stable Stable Stable Ambulatory Status Ambulatory Ambulatory Ambulatory Transportation Private Auto Private Auto Private Auto Accompanied by SELF Medication Reconcilliation completed & No No No provided to patient/care provider Clinical Summary of Care Provided Yes Yes Yes 03/01/21 12:09 Wound Care Nurse 3 #1 right medial ankle -Ulcer Cleansing -Foul Odor after Cleansing No -Negative Pressure Wound Therapy -Other Dressing epifix -Primary Dressing Covered/Secured with Dry Gauze & Roll Gauze, Secured with Tape Treatment Response Procedure Tolerated Well Pain Scale: 0-10 Numeric Is Patient Pain Free? Yes Teaching: Wound Center Dressing Your Wound -Person Taught -Teaching Method -Response to teaching WC - Visit Discharge Discharge Condition Stable Ambulatory Status Ambulatory Transportation Private Auto Accompanied by Medication Reconcilliation completed & provided to patient/care provider Clinical Summary of Care Provided Assessment/Plan Assessment/Plan (1) Nonhealing surgical wound: CODE(S): T81.89XA - Other complications of procedures, not elsewhere classified, initial encounter QUALIFIERS: Encounter type: initial encounter Qualified Code(s): T81.89XA - Other complications of procedures, not elsewhere classified, initial encounter (2) Osteomyelitis of ankle: CODE(S): M86.9 - Osteomyelitis, unspecified QUALIFIERS: Laterality: right Osteomyelitis type: subacute Qualified Code(s): M86.271 - Subacute osteomyelitis, right ankle and foot (3) Edema of right lower leg: CODE(S): R60.0 - Localized edema PLAN: Improving. Debridement done as documented above, procedure was well-tolerated. 9th application of Epifix done today using 100% of product. Moistened with saline, Wound veil over top. Secured with Steri-Strips. Leave in place for a week. Elevate lower extremities when seated and in bed. Continue compression. Increase protein intake, Zinc, vitamin C and D. His questions were answered and he was advised to call with any further questions or concerns. Follow up in a week. This note was generated with [employer] dictation software. It may contain incorrect words, spelling, and punctuation that were not noted in checking the note before signing.
== END 2021-03-01 23:59 ==
LOC: WC 08:00
PROVIDERS: PCP Family Medicine; Visit Provider Internal Medicine
DX: M86.671 Other chronic osteomyelitis, right ankle and foot (principal); T81.89XA Other complications of procedures, not elsewhere classified, initial encounter; M86.271 Subacute osteomyelitis, right ankle and foot; R60.0 Localized edema; V86.56XA Driver of dirt bike or motor/cross bike injured in nontraffic accident, initial encounter
CPT/HCPCS: 15271; 99183; Q4186; G0277

== ENCOUNTER 2021-03-16 08:00 | Outpatient (RCR) | payer OTHER, SELFPAY ==
[2021-03-02 00:29] VITALS: BP 128/70; PULSE 71; RESP 16; TEMP 36.6
[2021-03-02 08:25] VITALS: BP 122/75; BP 125/82; PULSE 66; PULSE 81; RESP 16; TEMP 36.2
--- NOTE | 2021-03-02 10:19 | PCM.HBO.PN ---
History of Present Illness Date of Service: 03/02/21 Chief Complaint: Chronic osteomyelitis of the right ankle; Non healing Post surgical wound of the right ankle. History of Wound: Mr. Stoner is a 20-year-old who presented to the wound center for HBO due to non healing post surgical wound and chronic osteomyelitis. Initial injury was in 2017 and has had several surgeries since then. Most recent surgery was in September 2020. Following which, surgical wound has not completely closed. History of osteomyelitis initially diagnosed in 2019 and during most recent surgery, nonviable bone excised. Had been following up closely with his surgeon. No known history of heart or lung disease. Developed right ear pain and had a Tympanostomy tube place 02/09/21. Left TM with no redness or discharge. Recently had Imaging and Blood work done which showed no concerns. Subjective Subjective Hyperbaric oxygen therapy was administered as per the facility's protocol. Today's session represents the 32nd session of a planned 60 such sessions. Hyperbaric oxygen therapy was administered at 2 katelyn for 90 minutes with no air breaks. Patient tolerated hyperbaric oxygen therapy well, without complaints or complications. Upon emergence from the hyperbaric chamber, the patient's vital signs remained stable. The patient was discharged in good condition. Objective Data Objective Data Vital Signs: Vital Signs Temp Pulse Resp BP 97.1 F L 81 16 122/75 H 03/02/21 08:25 03/02/21 08:25 03/02/21 08:25 03/02/21 08:25 Exam Physical Exam Const alert, oriented x3, no apparent distress and healthy appearing General Appearance: cooperative HEENT normocephalic, head/scalp atraumatic, EAC's normal and TM's normal bilaterally HEENT Narrative: tympanostomy tube present right TM Resp normal respiratory effort Effort and Inspection: able to speak in complete sentences Cardio regular rate and regular rhythm Neuro oriented x3 and no focal motor deficits Psych mental status grossly normal, thought process normal, cooperative and affect normal Assessment/Plan Assessment/Plan (1) Chronic osteomyelitis of right ankle: CODE(S): M86.671 - Other chronic osteomyelitis, right ankle and foot (2) Edema of right lower leg: CODE(S): R60.0 - Localized edema (3) Nonhealing surgical wound: CODE(S): T81.89XA - Other complications of procedures, not elsewhere classified, initial encounter QUALIFIERS: Encounter type: initial encounter Qualified Code(s): T81.89XA - Other complications of procedures, not elsewhere classified, initial encounter (4) Chronic osteomyelitis: CODE(S): M86.60 - Other chronic osteomyelitis, unspecified site (5) Osteomyelitis of ankle: CODE(S): M86.9 - Osteomyelitis, unspecified QUALIFIERS: Osteomyelitis type: subacute Laterality: right Qualified Code(s): M86.271 - Subacute osteomyelitis, right ankle and foot PLAN: The patient appears to be tolerating hyperbaric oxygen therapy well which will continue per his medical plan.
[2021-03-13 09:19] VITALS: BP 132/75; PULSE 78; RESP 16; TEMP 36.4
--- NOTE | 2021-03-13 12:06 | PCM.HBO.PN ---
History of Present Illness Date of Service: 03/13/21 Chief Complaint: Chronic osteomyelitis of the right ankle; Non healing Post surgical wound of the right ankle. History of Wound: Mr. Stoner is a 20-year-old who presented to the wound center for HBO due to non healing post surgical wound and chronic osteomyelitis. Initial injury was in 2017 and has had several surgeries since then. Most recent surgery was in September 2020. Following which, surgical wound has not completely closed. History of osteomyelitis initially diagnosed in 2019 and during most recent surgery, nonviable bone excised. Had been following up closely with his surgeon. No known history of heart or lung disease. Developed right ear pain and had a Tympanostomy tube place 02/09/21. Left TM with no redness or discharge. Recently had Imaging and Blood work done which showed no concerns. Subjective Subjective The patient presented today for the purpose of hyperbaric oxygen therapy. Today's session would have represented the 33rd such session of a planned 60 sessions. Less than 10 minutes into the patient's dive, nearly to depth, patient began to experience significant right ear pain. Therefore, the patient's hyperbaric session was terminated. Upon emergence from the hyperbaric oxygen chamber, otoscopic examination of the patient's right ear canal revealed significant erythema. It is noted that the patient has previously been evaluated by the ENT service in the recent past, for placement of a myringotomy tube. Patient is to be referred back to the ENT service for evaluation relative to his right ear pain and erythema. Hyperbaric oxygen therapy will resume once clearance has been obtained from the ENT service. Objective Data Objective Data Vital Signs: Vital Signs Temp Pulse Resp BP 97.6 F L 78 16 132/75 H 03/13/21 09:19 03/13/21 09:19 03/13/21 09:19 03/13/21 09:19 Exam Physical Exam Const alert, oriented x3, no apparent distress and well nourished General Appearance: cooperative and well developed HEENT normocephalic HEENT Narrative: Otoscopic examination reveals the right ear canal to be erythematous. Head and Scalp: atraumatic Eyes PERRL and EOMs intact bilaterally Resp normal respiratory effort and no use of accessory muscles Effort and Inspection: able to speak in complete sentences Psych affect normal Appearance: grossly normal and well kempt Assessment/Plan Assessment/Plan (1) Chronic osteomyelitis of right ankle: CODE(S): M86.671 - Other chronic osteomyelitis, right ankle and foot (2) Chronic osteomyelitis: CODE(S): M86.60 - Other chronic osteomyelitis, unspecified site (3) Edema of right lower leg: CODE(S): R60.0 - Localized edema (4) Nonhealing surgical wound: CODE(S): T81.89XA - Other complications of procedures, not elsewhere classified, initial encounter QUALIFIERS: Encounter type: initial encounter Qualified Code(s): T81.89XA - Other complications of procedures, not elsewhere classified, initial encounter (5) Osteomyelitis of ankle: CODE(S): M86.9 - Osteomyelitis, unspecified QUALIFIERS: Osteomyelitis type: subacute Laterality: right Qualified Code(s): M86.271 - Subacute osteomyelitis, right ankle and foot PLAN: The patient's 33rd session of hyperbaric oxygen therapy today was terminated shortly upon initiation due to the patient's complaints of right ear pain. Upon physical examination, otoscopic examination revealed significant erythema involving the right ear canal. The patient is to be referred to the ENT service for evaluation in this regard. Hyperbaric oxygen therapy will resume in subsequent days, once clearance has been obtained from the ENT service.
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
[2021-03-15 08:47] VITALS: BP 129/72; BP 133/75; PULSE 65; PULSE 85; RESP 16; TEMP 36.3
[2021-03-15 10:16] VITALS: BP 129/72; PULSE 85; RESP 16; TEMP 36.3
--- NOTE | 2021-03-15 13:41 | PN.PCM_ITS ---
History of Present Illness Date of Service: 03/15/21 Chief Complaint: Chronic osteomyelitis of the right ankle; Non healing Post surgical wound of the right ankle. History of Wound: Mr. Stoner is a 20-year-old who presented to the wound center for HBO due to non healing post surgical wound and chronic osteomyelitis. Initial injury was in 2017 and has had several surgeries since then. Most recent surgery was in September 2020. Following which, surgical wound has not completely closed. History of osteomyelitis initially diagnosed in 2019 and during most recent surgery, nonviable bone excised. Had been following up closely with his surgeon. No known history of heart or lung disease. Developed right ear pain and had a Tympanostomy tube place 02/09/21. Left TM with no redness or discharge. Recently had Imaging and Blood work done which showed no concerns. Subjective Subjective Has had 9 applications of Epifix. Not been here in 2 weeks. Had [address] to [place] [address] way without compression. Significant lower extremity swelling. Previously healed area has opened up. Also states that he has had some loosened screws which would be removed by Ortho. Objective Data Objective Data Vital Signs: Vital Signs Temp Pulse Resp BP 97.3 F L 85 16 129/72 H 03/15/21 10:16 03/15/21 10:16 03/15/21 10:16 03/15/21 10:16 Charges/Coding Procedures Integumentary [id number]: [id number] Suzy subq tissue 20 sq cm/< Physical Exam Const alert, oriented x3, no apparent distress and well nourished General Appearance: cooperative and well developed HEENT normocephalic Head and Scalp: atraumatic Tympanic Membrane: TM's normal bilaterally Resp normal respiratory effort Effort and Inspection: able to speak in complete sentences Auscultation: clear to auscultation bilaterally Cardio regular rate and regular rhythm Psych Appearance: grossly normal Debridement Note Debridement Note Wound debrided: Right Lower Extremity Type of Debridement: Excisional debridement Anesthesia Used: 4% Lidocaine Solution Depth: Down to and including healthy tissue Percentage of wound debrided: 100 Instrument Used: 3mm curette Tissue Removed: Slough and devitalized tissue Severity: Fat Layer Exposed Amount of bleeding with debridement: Mild Bleeding Controlled with: Pressure Patient tolerated procedure: Patient tolerated procedure well Post-Debridement Measurements and Additional Note: Post-Debridement Measurements/Treatment WC - Nurse 1 - General Ulcer Assessment Start: 03/02/21 08:24 Freq: Status: Active Protocol: .DAMIENEXJennifer Activity Type Activity Date Activity User E-Sign Co-Sign Detail Recorded Client Recorded Date Recorded By Document 03/15/21 10:16 ML [id number] 03/15/21 10:23 ML 03/15/21 10:16 WC - Today's Visit Information Type of service Follow-up Visit (Physician/DIP FILLER ) Arrival Mode Ambulatory Transfer Assistance None Patient Identification Verified (Name & Yes ) Patient Requires Transmission-Based No Precautions Safety Precautions NA Vital Signs Temperature (97.8 F-99.1 F) 97.3 F L Temperature Source Temporal Pulse Rate (60-100) 85 Pulse Location Monitor Respiratory Rate (12-18) 16 Respiratory rate source Observation Blood Pressure (90/60-120/80) 129/72 H Blood Pressure Mean (mm Hg) 91 Source Monitor Position Sitting Blood Pressure Location Left Arm History Since Last Visit- (Skip if this is Patient's initial visit) Have you changed medications since your No last visit? Any new allergies or adverse reactions No Had a fall/change in ADL's that may No increase risk of falls Signs or symptoms of abuse and/or No neglect since last visit Have you been in the hospital since your No last visit? Has dressing in place as prescribed Yes Has compression in place as prescribed Yes Has offloadiing in place as prescribed N/A Experienced any changes in pain level or No management Left Footwear Regular Shoe Right Footwear Regular Shoe Pain Scale: 0-10 Numeric Is Patient Pain Free? Yes - Nurse 1 - General Ulcer Measurement Start: 03/02/21 08:24 Freq: Status: Active Protocol: Activity Type Activity Date Activity User E-Sign Co-Sign Detail Recorded Client Recorded Date Recorded By Document 03/15/21 10:16 ML [id number] 03/15/21 10:23 ML 03/15/21 10:16 Wound Center Nurse 1 #1 right medial ankle -Current Size (cm) - Length 1 -Current Size (cm) - Width 0.5 -Current Size (cm) - Depth 0.1 -Total Square Cm 0.5 -Exudate Amt Small -Exudate Type Serosanguineous -Wound Margin Distinct, Outline Attached -Granulation Amt Medium (34-66%) -Necrosis Amt Medium (34-66%) -Necrotic Tissue Type Adherent Slough -Texture (Radha-wound Skin Appearance) Assessed -Moisture (Radha-wound Skin Appearance) Assessed -Color (Radha-wound Skin Appearance) Assessed -Temperature (Radha-wound Skin No Abnormality Appearance) (Pt Warm) -Tenderness on Palpation (Radha-wound No Skin Appearance) -Ulcer Cleansing Soap and Water -Foul Odor after Cleansing No -Anesthetic Used 5% Lidocaine Gel WC - Nurse 2 - General Ulcer CM Notes Start: 03/02/21 08:24 Freq: Status: Active Protocol: Activity Type Activity Date Activity User E-Sign Co-Sign Detail Recorded Client Recorded Date Recorded By Document 03/15/21 11:17 MW [id number] 03/15/21 11:23 MW 03/15/21 11:17 Wound Center Nurse 2 -Time 11:19 -Correct Patient Yes -Correct Side, Site, Position Yes -Correct Procedure Yes -Procedure Performed Yes -Type of Procedure Debridement -Clinical Debridement Subcutaneous -Tissue Removed Subcutaneous -Post Debridement (cm) - Length 1.5 -Post Debridement (cm) - Width 1.0 -Post Debridement (cm) - Depth 0.1 -Total Square (Post) (cm) 1.50 -Area of Debridement (cm) - Length 1.5 -Area of Debridement (cm) - Width 1.0 -Total Square (Area) (cm) 1.50 -Tunneling No -Undermining/Tunneling No -Circular Undermining No -Wound/Ulcer Outcome Not Healed -Ulcer Cleansing Rinsed/ Irrigated with Saline -Foul Odor after Cleansing No -Bioengineered Tissue No -Bleeding Controlled with Pressure -Offloading No -Treatment Response Procedure Tolerated Well -Debridement - Subq, 1st 20sq cm Yes Pain Scale: 0-10 Numeric Is Patient Pain Free? Yes WC - Nurse 3 - General Ulcer D/C NN Start: 03/02/21 08:24 Freq: Status: Active Protocol: Activity Type Activity Date Activity User E-Sign Co-Sign Detail Recorded Client Recorded Date Recorded By Document 03/15/21 11:33 DL [id number] 03/15/21 11:35 DL 03/15/21 11:33 Wound Care Nurse 3 #1 right medial ankle -Ulcer Cleansing Rinsed/ Irrigated with Saline -Foul Odor after Cleansing No -Primary Dressing Applied Aquacel Extra -Primary Dressing Covered/Secured with Dry Gauze -Aquacel Extra 1 Right -Multi-Layered Wrap Application Multi-Layer Comp - Right ($ ) Treatment Response Procedure Tolerated Well Pain Scale: 0-10 Numeric Is Patient Pain Free? Yes WC - Visit Discharge Discharge Condition Stable Ambulatory Status Ambulatory, Crutches Transportation Private Auto Assessment/Plan Assessment/Plan (1) Nonhealing surgical wound: CODE(S): T81.89XA - Other complications of procedures, not elsewhere classified, initial encounter QUALIFIERS: Encounter type: initial encounter Qualified Code(s): T81.89XA - Other complications of procedures, not elsewhere classified, initial encounter (2) Osteomyelitis of ankle: CODE(S): M86.9 - Osteomyelitis, unspecified QUALIFIERS: Osteomyelitis type: subacute Laterality: right Qualified Code(s): M86.271 - Subacute osteomyelitis, right ankle and foot (3) Edema of right lower leg: CODE(S): R60.0 - Localized edema PLAN: Worsened. Reopened. Likely due to worsening edema as well. As above, had a 30-hour drive to and from [place] without compression. Hold off epi fix for now. Promogran with Adaptic over top. Leave in place for 4 days.. 3M wraps for edema management. May change on Friday. Elevate lower extremities when seated and in bed. Increase protein intake, Zinc, vitamin C and D. His questions were answered and he was advised to call with any further questions or concerns. Follow up in a week. This note was generated with [employer] dictation software. It may contain incorrect words, spelling, and punctuation that were not noted in checking the note before signing.
[2021-03-16 09:01] VITALS: BP 123/68; PULSE 72; RESP 16; TEMP 36.3
--- NOTE | 2021-03-16 14:26 | PCM.HBO.PN ---
History of Present Illness Date of Service: 03/16/21 Chief Complaint: Chronic osteomyelitis of the right ankle; Non healing Post surgical wound of the right ankle. History of Wound: Mr. Stoner is a 20-year-old who presented to the wound center for HBO due to non healing post surgical wound and chronic osteomyelitis. Initial injury was in 2017 and has had several surgeries since then. Most recent surgery was in September 2020. Following which, surgical wound has not completely closed. History of osteomyelitis initially diagnosed in 2019 and during most recent surgery, nonviable bone excised. Had been following up closely with his surgeon. No known history of heart or lung disease. Developed right ear pain and had a Tympanostomy tube place 02/09/21. Left TM with redness but no discharge. Recently had Imaging and Blood work done which showed no concerns. Subjective Subjective Hyperbaric oxygen therapy was begun to be administered as per the facility's protocol. Today's session represented the 34th such session of a planned 60 sessions. Hyperbaric oxygen therapy was planned to be administered at 2 katelyn for 90 minutes with no air breaks. The patient experienced left ear pain and was unable to tolerate increased pressure past 1.0ATM, the treatment was discontinued. Slight redness to the left tympanic membrane was visualized with decreased light reflex and right tympanic membrane was found to be normal with patent tympanostomy tube present. Objective Data Objective Data Vital Signs: Vital Signs Temp Pulse Resp BP 97.4 F L 72 16 123/68 H 03/16/21 09:01 03/16/21 09:01 03/16/21 09:01 03/16/21 09:01 Exam Physical Exam Const alert, oriented x3, no apparent distress and healthy appearing General Appearance: cooperative HEENT normocephalic, head/scalp atraumatic and EAC's normal HEENT Narrative: left TM erythematous and bulging, right TM with patent tympanostomy tube present. Resp normal respiratory effort Effort and Inspection: able to speak in complete sentences Cardio regular rate and regular rhythm Neuro oriented x3 and no focal motor deficits Psych mental status grossly normal, thought process normal, cooperative and affect normal Nursing Assessment and Debridement Post-Debridement Measurements and Additional Note: Post-Debridement Measurements/Treatment EVARISTO - Nurse 1 - General Ulcer Assessment Start: 03/02/21 08:24 Freq: Status: Active Protocol: FAIZAN Activity Type Activity Date Activity User E-Sign Co-Sign Detail Recorded Client Recorded Date Recorded By Document 03/15/21 10:16 ML [id number] 03/15/21 10:23 ML 03/15/21 10:16 WC - Today's Visit Information Type of service Follow-up Visit (Physician/DEEP FRYER ASSEMBLER ) Arrival Mode Ambulatory Transfer Assistance None Patient Identification Verified (Name & Yes ) Patient Requires Transmission-Based No Precautions Safety Precautions NA Vital Signs Temperature (97.8 F-99.1 F) 97.3 F L Temperature Source Temporal Pulse Rate (60-100) 85 Pulse Location Monitor Respiratory Rate (12-18) 16 Respiratory rate source Observation Blood Pressure (90/60-120/80) 129/72 H Blood Pressure Mean (mm Hg) 91 Source Monitor Position Sitting Blood Pressure Location Left Arm History Since Last Visit- (Skip if this is Patient's initial visit) Have you changed medications since your No last visit? Any new allergies or adverse reactions No Had a fall/change in ADL's that may No increase risk of falls Signs or symptoms of abuse and/or No neglect since last visit Have you been in the hospital since your No last visit? Has dressing in place as prescribed Yes Has compression in place as prescribed Yes Has offloadiing in place as prescribed N/A Experienced any changes in pain level or No management Left Footwear Regular Shoe Right Footwear Regular Shoe Pain Scale: 0-10 Numeric Is Patient Pain Free? Yes - Nurse 1 - General Ulcer Measurement Start: 03/02/21 08:24 Freq: Status: Active Protocol: Activity Type Activity Date Activity User E-Sign Co-Sign Detail Recorded Client Recorded Date Recorded By Document 03/15/21 10:16 ML [id number] 03/15/21 10:23 ML 03/15/21 10:16 Wound Center Nurse 1 #1 right medial ankle -Current Size (cm) - Length 1 -Current Size (cm) - Width 0.5 -Current Size (cm) - Depth 0.1 -Total Square Cm 0.5 -Exudate Amt Small -Exudate Type Serosanguineous -Wound Margin Distinct, Outline Attached -Granulation Amt Medium (34-66%) -Necrosis Amt Medium (34-66%) -Necrotic Tissue Type Adherent Slough -Texture (Radha-wound Skin Appearance) Assessed -Moisture (Radha-wound Skin Appearance) Assessed -Color (Radha-wound Skin Appearance) Assessed -Temperature (Radha-wound Skin No Abnormality Appearance) (Pt Warm) -Tenderness on Palpation (Radha-wound No Skin Appearance) -Ulcer Cleansing Soap and Water -Foul Odor after Cleansing No -Anesthetic Used 5% Lidocaine Gel EVARISTO - Nurse 2 - General Ulcer CM Notes Start: 03/02/21 08:24 Freq: Status: Active Protocol: Activity Type Activity Date Activity User E-Sign Co-Sign Detail Recorded Client Recorded Date Recorded By Document 03/15/21 11:17 MW [id number] 03/15/21 11:23 MW 03/15/21 11:17 Wound Center Nurse 2 -Time 11:19 -Correct Patient Yes -Correct Side, Site, Position Yes -Correct Procedure Yes -Procedure Performed Yes -Type of Procedure Debridement -Clinical Debridement Subcutaneous -Tissue Removed Subcutaneous -Post Debridement (cm) - Length 1.5 -Post Debridement (cm) - Width 1.0 -Post Debridement (cm) - Depth 0.1 -Total Square (Post) (cm) 1.50 -Area of Debridement (cm) - Length 1.5 -Area of Debridement (cm) - Width 1.0 -Total Square (Area) (cm) 1.50 -Tunneling No -Undermining/Tunneling No -Circular Undermining No -Wound/Ulcer Outcome Not Healed -Ulcer Cleansing Rinsed/ Irrigated with Saline -Foul Odor after Cleansing No -Bioengineered Tissue No -Bleeding Controlled with Pressure -Offloading No -Treatment Response Procedure Tolerated Well -Debridement - Subq, 1st 20sq cm Yes Pain Scale: 0-10 Numeric Is Patient Pain Free? Yes EVARISTO - Nurse 3 - General Ulcer D/C NN Start: 03/02/21 08:24 Freq: Status: Active Protocol: Activity Type Activity Date Activity User E-Sign Co-Sign Detail Recorded Client Recorded Date Recorded By Document 03/15/21 11:33 DL [id number] 03/15/21 11:35 DL 03/15/21 11:33 Wound Care Nurse 3 #1 right medial ankle -Ulcer Cleansing Rinsed/ Irrigated with Saline -Foul Odor after Cleansing No -Primary Dressing Applied Aquacel Extra -Primary Dressing Covered/Secured with Dry Gauze -Aquacel Extra 1 Right -Multi-Layered Wrap Application Multi-Layer Comp - Right ($ ) Treatment Response Procedure Tolerated Well Pain Scale: 0-10 Numeric Is Patient Pain Free? Yes WC - Visit Discharge Discharge Condition Stable Ambulatory Status Ambulatory, Crutches Transportation Private Auto Assessment/Plan Assessment/Plan (1) Chronic osteomyelitis of right ankle: CODE(S): M86.671 - Other chronic osteomyelitis, right ankle and foot (2) Edema of right lower leg: CODE(S): R60.0 - Localized edema (3) Nonhealing surgical wound: CODE(S): T81.89XA - Other complications of procedures, not elsewhere classified, initial encounter QUALIFIERS: Encounter type: initial encounter Qualified Code(s): T81.89XA - Other complications of procedures, not elsewhere classified, initial encounter (4) Chronic osteomyelitis: CODE(S): M86.60 - Other chronic osteomyelitis, unspecified site (5) Osteomyelitis of ankle: CODE(S): M86.9 - Osteomyelitis, unspecified QUALIFIERS: Osteomyelitis type: subacute Laterality: right Qualified Code(s): M86.271 - Subacute osteomyelitis, right ankle and foot PLAN: The patient was referred to ENT for evaluation for myringotomy and tympanostomy tube placement of his left ear. He was instructed to use flonase nasal spray daily to decrease eustachian tube dysfunction.
== END 2021-04-01 23:59 ==
LOC: WC 08:00
PROVIDERS: PCP Family Medicine; Visit Provider Internal Medicine
DX: T81.89XA Other complications of procedures, not elsewhere classified, initial encounter (principal); R60.0 Localized edema; M86.671 Other chronic osteomyelitis, right ankle and foot
CPT/HCPCS: 11042; 29581; 99183; G0277